=== PATIENT | female | born 1975 | race Caucasian/White ===

== ENCOUNTER 2020-09-12 17:14 | Emergency (ER) | payer OTHER, SELFPAY ==
[2020-09-12 17:22] VITALS: BP 125/80; PULSE 78; RESP 18; TEMP 36.2; O2SAT 96; BMI 36.8
--- NOTE | 2020-09-12 17:33 | ED_ITS ---
HPI - Back Pain/Injury General: Chief Complaint: Back Pain/Injury Stated Complaint: BACK PAIN Time Seen by Provider: 09/12/20 17:32 History of Present Illness: HPI Narrative: Patient is a 45-year-old female comes to the ED with lower back pain. Patient says yesterday she tried to move a jennifer-size bed by herself. After lifting she felt a little tweak in her lower back. Later that night she started developing some lower back pain and took ibuprofen. This morning when she woke up she had right and left lower back pain that does not radiate down into the legs. She has not taken any pain meds today. Pain rated 7 out of 10. Denies any bladder or bowel incontinence, numbness tingling to pelvic region and no weakness down lower extremities. Associated symptoms: Deny abdominal pain, chills, dysuria, fatigue, fecal incontinence, fever(s), hematuria, nausea, vomiting or weakness Treatments prior to arrival: NSAIDS Review of Systems Const: Denies: fever(s), chills or fatigue Eyes: Denies: change in vision or eye discomfort ENMT: Denies: throat pain, odynophagia, nasal discharge or nasal congestion Card: Denies: chest pain, palpitations, edema, swelling of feet/ankles, dyspnea on exertion or orthopnea Resp: Denies: dyspnea, productive cough or non-productive cough GI: Denies: abdominal pain, nausea, vomiting, diarrhea, constipation, fecal incontinence or hematochezia : Denies: flank pain, dysuria or hematuria Musc: Reports: back pain; Denies: neck pain or extremity swelling Skin/Breast: Denies: rash or new lesions Neuro: Denies: headache(s), numbness in extremities or weakness in extremities Physical Exam Const: COMMON NORMALS: no acute distress, patient oriented x3 and alert GENERAL APPEARANCE: cooperative and comfortable NUTRITIONAL APPEARANCE: overweight HENMT: COMMON NORMALS: normocephalic HEAD & SCALP: normocephalic MOUTH: Normal oral and palatal mucosa present THROAT: posterior oropharynx normal and uvula midline Eye: COMMON NORMALS: Equal, round and reactive pupils present PUPIL: Yes Equal, round and reactive pupils present Neck/C-Spine: COMMON NORMALS: supple GENERAL: Yes normal visual inspection Resp: COMMON NORMALS: normal respiratory effort, No retractions, No use of accessory muscles and clear to auscultation bilaterally AUSCULTATION: clear to auscultation bilaterally Cardio: COMMON NORMALS: regular rate, regular rhythm, S1 normal heart sound present, S2 normal heart sound present, No gallops present (Cardio), No clicks present (Cardio), No murmurs present (Cardio) and Peripheral pulses 2+ throughout RATE: regular rate RHYTHM: regular rhythm HEART SOUNDS: S1 normal heart sound present and S2 normal heart sound present PERIPHERAL PULSES: Peripheral pulses 2+ throughout GI: COMMON NORMALS: Normal to inspection, nondistended, normoactive bowel sounds present, Soft to palpation, non-tender and no masses PALPATION: Yes Soft to palpation : COMMON NORMALS: Yes no CVA tenderness BLADDER/KIDNEY EXAM: Yes no CVA tenderness Back/Pelvis: COMMON NORMALS: no CVA tenderness LUMBAR SPINE/LOWER BACK: Yes pain with ROM, No lumbar spinal tenderness and Yes paraspinal muscle tenderness Lumbar paraspinal muscle tenderness: right (Right side is more tender than left.) Right lumbar paraspinal muscle tenderness: L4 and L5 and left left lumbar paraspinal muscle tenderness: L4 and L5 Extremity: COMMON NORMALS: normal to inspection and no pedal edema Neuro: COMMON NORMALS: patient oriented x3 and moves all extremities SENSORIUM/ORIENTATION: Yes alert Skin: GENERAL SKIN EXAM: dry skin Course Vital Signs: Vital signs: Vital Signs Temperature 97.2 F L 09/12/20 17:22 Pulse Rate 78 09/12/20 17:22 Respiratory Rate 18 09/12/20 17:22 Blood Pressure 125/80 09/12/20 17:22 Pulse Oximetry 96 09/12/20 17:22 MDM - Back Pain/Injury MDM Narrative: Medical decision making narrative: Patient is a 45-year-old female who comes to the ED with lower back pain after lifting heavy object by herself yesterday. Denies any pain radiating down legs. Denies cauda equina symptoms. Patient has para lumbar spinal muscle tenderness bilaterally. [place] cross was given IM Norflex, Toradol and Solu-Medrol while here in the ED. She was diagnosed with strain of lumbar region and sent home with a prescription for Medrol Dosepak and Robaxin. She was told to follow-up with PCP in 7 to 10 days to rest, apply ice and/or heat to back. Stretch lower back daily take [id number] ibuprofen for pain. Return to ED precautions given. Patient understood agree with plan. Discharge Plan Discharge Patient Disposition: Home Clinical Impression: Strain of lumbar region Qualifiers: Encounter type: initial encounter Qualified Code(s): S39.012A - Strain of muscle, fascia and tendon of lower back, initial encounter Condition: Stable Prescriptions: New Medrol (Logan) 4 mg tablets,dose pack See Rx Instructions .ROUTE .COMPLEX Qty: 21 RF: 0 methocarbamol 750 mg tablet 750 mg PO Q8H Qty: 30 RF: 0 Discharge Orders: Discharge Order (Routine); Ordered 09/12/20 Ordered By: Rony Dailey Referrals: Stephanie Sahu FNP [Primary Care Provider] - Discharge Diet: Regular Discharge Activity: Increase activity as tolerated Patient Instructions: Low Back Strain (ED), Acute Low Back Pain (ED) Activity Restrictions/Additional Instructions: Follow-up with medical provider as directed in 7 to 10 days. Rest, ice and/or heat on lower back to help with symptoms. Massage sore muscles and stretch lower back daily. Take medications as prescribed. methocarbamol is a muscle relaxer and can cause some drowsiness. Use at night before bed and make sure to use with caution during the day. Take [id number] ibuprofen for pain. Return to the ER or your medical provider if condition worsens. Please read and understand discharge instructions. If any questions, please ask. Coding Level of Care Code ED [employer] [facility] Exam Comprehensive
[2020-09-12] MEDS: ketorolac 60 mg/2 mL INJ IM (18:19)
[2020-09-12] MEDS: orphenadrine 30 mg/mL Inj 2 mL 60 MG IM (18:20)
== END 2020-09-12 18:25 | disposition home or self-care (01) ==
PROVIDERS: Emergency Provider Physician Assistant; Family Provider Nurse Practitioner Family; PCP Nurse Practitioner Family
DX: S39.012A Strain of muscle, fascia and tendon of lower back, initial encounter (principal); X50.0XXA Overexertion from strenuous movement or load, initial encounter
CPT/HCPCS: 12345; 96372; 99281; 99283; J1885; J2360; J2930

== ENCOUNTER 2021-02-26 13:10 | Emergency (ER) | payer OTHER, SELFPAY ==
[2021-02-26 13:15] VITALS: BP 129/79; PULSE 63; RESP 18; TEMP 36.6; O2SAT 98; BMI 41.0
--- NOTE | 2021-02-26 14:07 | W.ED.ABDPA2 ---
HPI - Abdominal Pain General: Chief Complaint: Abdominal Pain Stated Complaint: RT SIDE PAIN, NAUSEA/VOMITING Time Seen by Provider: 02/26/21 14:03 History of Present Illness: HPI narrative: Patient is a 45-year-old female comes to the ED with abdominal pain, nausea and vomiting. Patient has a past surgical history of cholecystectomy, 2 C-sections. Patient also has a history of kidney stones. Patient says this morning she woke up to have a bowel movement and developed right lower quadrant abdominal pain. She denies any change in bowel movements or any blood in the stool. She says the pain is currently rated a 6 out of 10 but it has episodes of more severe waves of pain. She is also developed some nausea and vomiting since onset of abdominal pain this morning. Patient reports that abdominal pain also gets worse with any movement, such as twisting her torso or flexing abdomen to lean forward. She has had no appetite today as well. Denies any UTI symptoms, fever or chills. Associated Symptoms: Reports nausea and vomiting; Denies chills, constipation, diarrhea, dysuria, fever(s), hematochezia and hematuria Review of Systems Const: Reports: change in appetite (Decreased appetite today.); Denies: fever(s), chills or fatigue Eyes: Denies: change in vision or eye discomfort ENMT: Denies: throat pain, odynophagia, nasal discharge or nasal congestion Card: Denies: chest pain, palpitations, edema, swelling of feet/ankles, dyspnea on exertion or orthopnea Resp: Denies: dyspnea, productive cough or non-productive cough GI: Reports: abdominal pain, nausea and vomiting; Denies: diarrhea, constipation or hematochezia : Reports: flank pain; Denies: dysuria or hematuria Musc: Denies: neck pain, back pain or extremity swelling Skin/Breast: Denies: rash or new lesions Neuro: Denies: headache(s), numbness in extremities or weakness in extremities Physical Exam Const: COMMON NORMALS: no acute distress, patient oriented x3 and alert GENERAL APPEARANCE: cooperative and comfortable NUTRITIONAL APPEARANCE: obese HENMT: COMMON NORMALS: normocephalic HEAD & SCALP: normocephalic MOUTH: Normal oral and palatal mucosa present THROAT: posterior oropharynx normal and uvula midline Eye: COMMON NORMALS: Equal, round and reactive pupils present PUPIL: Yes Equal, round and reactive pupils present Neck/C-Spine: COMMON NORMALS: supple GENERAL: Yes normal visual inspection Resp: COMMON NORMALS: normal respiratory effort, No retractions, No use of accessory muscles and clear to auscultation bilaterally AUSCULTATION: clear to auscultation bilaterally Cardio: COMMON NORMALS: regular rate, regular rhythm, S1 normal heart sound present, S2 normal heart sound present, No gallops present (Cardio), No clicks present (Cardio), No murmurs present (Cardio) and Peripheral pulses 2+ throughout RATE: regular rate RHYTHM: regular rhythm HEART SOUNDS: S1 normal heart sound present and S2 normal heart sound present PERIPHERAL PULSES: Peripheral pulses 2+ throughout GI: COMMON NORMALS: Normal to inspection, nondistended, normoactive bowel sounds present, Soft to palpation and no masses INSPECTION: Yes central obesity PALPATION: Yes Soft to palpation and Yes Tenderness to palpation present (GI) (No localized tenderness. Tenderness in the right lower quadrant is general) Details: RLQ (No point tenderness. Generalized?possible muscular related.) : BLADDER/KIDNEY EXAM: Yes CVA tenderness on the right Back/Pelvis: GENERAL BACK: Yes CVA tenderness CVA tenderness: right Extremity: COMMON NORMALS: normal to inspection and no pedal edema Neuro: COMMON NORMALS: patient oriented x3 SENSORIUM/ORIENTATION: Yes alert GAIT: Yes Normal gait present Skin: GENERAL SKIN EXAM: dry skin Course Vital Signs: Vital signs: Vital Signs Temperature 97.9 F 02/26/21 13:15 Pulse Rate 62 02/26/21 15:41 Respiratory Rate 18 02/26/21 16:25 Blood Pressure 117/60 02/26/21 15:41 Pulse Oximetry 93 02/26/21 15:41 MDM - Abdominal Pain MDM Narrative: Medical decision making narrative: Patient is a 44-year-old female comes to the ED with some abdominal pain. Pain is acute in nature and does worsen with Humphrey core movements. Patient has tenderness to right lower quadrant but has not localized tenderness. White blood cell count 12 and the rest of labs were unremarkable. UA was unremarkable. CT the abdomen pelvis showed no acute findings. Patient diagnosed with muscular abdominal pain in right lower quadrant. She was discharged home with a prescription for methocarbamol. Return to ED precautions given. Follow-up with your PCP in 7 to 10 days for reevaluation. Patient understood and agreed with plan. Lab Data: Attestation: I reviewed the patient's lab results. Labs: Lab Results 02/26/21 02/26/21 02/26/21 Range/Units 14:20 14:30 14:30 WBC 12.0 H (4.0-10.0) 10^3/ uL RBC 5.21 (4.1-5.3) 10^6/u L Hgb 15.5 H (11.5-15.3) g/dL Hct 47.9 H (37.0-47.0) % MCV 91.9 (81-99) fL MCH 29.8 (28.0-34.0) pg MCHC 32.4 (30.0-36.0) g/dL RDW 13.1 (12.1-15.1) % Plt Count 403 H (130-400) 10^3/c mm MPV 9.5 (7.4-10.4) fL Neut % (Auto) 62.0 % Lymph % (Auto) 25.6 % [place] % (Auto) 8.0 % Eos % (Auto) 2.5 % Baso % (Auto) 1.2 % Neut # (Auto) 7.44 (1.8-7.7) 10^3/u L Lymph # (Auto) 3.1 (0.8-4.8) 10^3/u L [place] # (Auto) 1.0 H (0.2-0.9) 10^3/u L Eos # (Auto) 0.3 (0.0-0.8) 10^3/u L Baso # (Auto) 0.2 H (0.0-0.1) 10^3/u L Nucleated RBC % (a uto) 0 % Nucleated RBCs # 0.0 /100WBC Sodium 132 L (136-145) mmol/L Potassium 4.3 (3.5-5.1) mmol/L Chloride 96 L (98-107) mmol/L Carbon Dioxide 25 (22-29) mmol/L Anion Gap 15.3 (5-19) BUN 11 (6-20) mg/dL Creatinine 0.8 (0.5-0.9) mg/dL GFR Calculation 78.3 L (90-130) mL/min Glucose 90 (65-115) mg/dL Calculated Osmolal ity 273 L (285-295) mOsm/k g Calcium 9.1 (8.5-10.5) mg/dL Total Bilirubin 0.7 (0.15-1.2) mg/dL AST 12 (0-32) U/L ALT 22 (0-33) U/L Alkaline Phosphata se 82 (35-105) IU/L Total Protein 8.1 (6.6-8.7) g/dL Albumin 4.5 (3.5-5.2) g/dL Globulin 3.6 (1.3-4.6) g/dL Lipase 23 (13-60) U/L HCG, Qual (Negative) Urine Color Yellow (Yellow) Urine Appearance Clear (CLEAR) Urine pH 5 (5-7) Ur Specific Gravit y 1.015 (1.005-1.030) Urine Protein Neg (Negative) Urine Glucose (UA) Norm (Normal) Urine Ketones Negative (Negative) Urine Blood Neg (Negative) Urine Nitrate Negative (Negative) Urine Bilirubin Neg (Negative) Urine Urobilinogen Norm (Negative) mg/dL Ur Leukocyte Liz ase Negative (Negative) Urine RBC None (0-2) /hpf Urine WBC None (0-5) /hpf Ur Squamous Epith Cells 0-4 H (0-5) /hpf Amorphous Sediment Not Reportable Urine Bacteria Trace (NONE) /hpf 02/26/21 Range/Units 14:30 WBC (4.0-10.0) 10^3/ uL RBC (4.1-5.3) 10^6/u L Hgb (11.5-15.3) g/dL Hct (37.0-47.0) % MCV (81-99) fL MCH (28.0-34.0) pg MCHC (30.0-36.0) g/dL RDW (12.1-15.1) % Plt Count (130-400) 10^3/c mm MPV (7.4-10.4) fL Neut % (Auto) % Lymph % (Auto) % [place] % (Auto) % Eos % (Auto) % Baso % (Auto) % Neut # (Auto) (1.8-7.7) 10^3/u L Lymph # (Auto) (0.8-4.8) 10^3/u L [place] # (Auto) (0.2-0.9) 10^3/u L Eos # (Auto) (0.0-0.8) 10^3/u L Baso # (Auto) (0.0-0.1) 10^3/u L Nucleated RBC % (a uto) % Nucleated RBCs # /100WBC Sodium (136-145) mmol/L Potassium (3.5-5.1) mmol/L Chloride (98-107) mmol/L Carbon Dioxide (22-29) mmol/L Anion Gap (5-19) BUN (6-20) mg/dL Creatinine (0.5-0.9) mg/dL GFR Calculation (90-130) mL/min Glucose (65-115) mg/dL Calculated Osmolal ity (285-295) mOsm/k g Calcium (8.5-10.5) mg/dL Total Bilirubin (0.15-1.2) mg/dL AST (0-32) U/L ALT (0-33) U/L Alkaline Phosphata se (35-105) IU/L Total Protein (6.6-8.7) g/dL Albumin (3.5-5.2) g/dL Globulin (1.3-4.6) g/dL Lipase (13-60) U/L HCG, Qual Negative (Negative) Urine Color (Yellow) Urine Appearance (CLEAR) Urine pH (5-7) Ur Specific Gravit y (1.005-1.030) Urine Protein (Negative) Urine Glucose (UA) (Normal) Urine Ketones (Negative) Urine Blood (Negative) Urine Nitrate (Negative) Urine Bilirubin (Negative) Urine Urobilinogen (Negative) mg/dL Ur Leukocyte Liz ase (Negative) Urine RBC (0-2) /hpf Urine WBC (0-5) /hpf Ur Squamous Epith Cells (0-5) /hpf Amorphous Sediment Urine Bacteria (NONE) /hpf Imaging Data ^: CT Abd/Pel: Attestation: I personally reviewed and interpreted this imaging study as follows: Radiologist's impression: [address] [address] [address] Scan Report Signed Patient: Nathaly Howard Unit #: [id number] : 1975 Age/Sex: 45 / F ADM Date: 02/26/21 Loc: ER Room/Bed: Attending Dr: Ordering Provider/Ordering MD: Rony Dailey Date of Service: 02/26/21 Procedure(s): CT abdomen pelvis w con* [id number] Accession Number(s): [id number] Report Number: [id number] WS: [id number] CT scan of the abdomen and pelvis with IV contrast. Additional two-dimensional coronal and sagittal reconstruction was performed. 02/26/2021 Clinical Data: RLQ pain, n/v, Right CVA tenderness Comparison: None. DLP: 1981.[address] scans at [facility] use at least one of these dose optimization techniques: automated exposure control; mA and/or kV adjustment per patient size (includes targeted exams where dose is matched to clinical indication); or iterative reconstruction. Findings: The lower lungs show no nodules, masses or effusions. The spleen, adrenal glands and pancreas are normal. There is fatty change throughout the liver. The portal venous flow is normal. There are clips in the gallbladder fossa from a cholecystectomy. The kidneys show equal bilateral contrast excretion with no cyst or masses. No renal calculi or hydronephrosis is seen. The abdominal aorta is normal in size. No appendicitis or diverticulitis is seen. No abscess, adenopathy, ascites, mass, obstruction or free air is seen. The bladder is unremarkable. The uterus is absent. No inguinal hernia is seen. The bones of the lower thorax, lumbar spine, pelvis, and hips are not remarkable. CT/CT abdomen pelvis w con* [id number] Impression: 1. Fatty infiltration of the liver. 2. Cholecystectomy and hysterectomy. 3. Negative for acute intra-abdominal or pelvic abnormalities. Dictated By: Mitzy Landis MD Signed By: Mitzy Landsi MD Signed Date/Time: 02/26/21 1502 DD/ 1456 Discharge Plan Discharge Patient Disposition: Home Clinical Impression: Muscular abdominal pain in right lower quadrant Condition: Stable Prescriptions: New methocarbamol 750 mg tablet 750 mg PO Q8H Qty: 20 RF: 0 No Action Allergy Shot See Rx Instructions .ROUTE .COMPLEX RF: 0 Euthyrox 125 mcg tablet 125 mcg PO DAILY@1030 RF: 0 epinephrine 0.3 mg/0.3 mL auto-injector See Rx Instructions .ROUTE .COMPLEX RF: 0 escitalopram oxalate 20 mg tablet 40 mg PO DAILY@1030 RF: 0 Xyzal 5 mg Tablet 5 mg PO BID RF: 0 Eatable Cbd See Rx Instructions .ROUTE .COMPLEX RF: 0 Migraine Pain Reliever 1 - 2 tab PO Q4H PRN (Reason: Migraine Headache) RF: 0 Discharge Orders: Discharge ED (Routine); Ordered 02/26/21 Ordered By: Rony Dailey Referrals: Stephanie Sahu FNP [Primary Care Provider] - Discharge Diet: Regular Discharge Activity: Increase activity as tolerated Patient Instructions: Musculoskeletal Pain (ED), Core Strengthening Exercises (GEN) Activity Restrictions/Additional Instructions: Follow-up with medical provider as directed in 7 to 10 days for reevaluation. Take medications as prescribed. Methocarbamol is a muscle relaxer and can cause some drowsiness so take at night before bed. Take [id number] Tylenol or ibuprofen to help with pain. Apply cold pack on sore spot of abdomen and rest. I recommend some abdominal stretching and core strength exercises to help with symptoms and prevent reinjury. Return to the ER or your medical provider if condition worsens. Please read and understand discharge instructions. If any questions, please ask. Coding Level of Care Code ED [employer] Exam Comprehensive
--- NOTE | 2021-02-26 14:22 | CT_ITS ---
WS: [id number] CT scan of the abdomen and pelvis with IV contrast. Additional two-dimensional coronal and sagittal r econstruction was performed. 02/26/2021 Clinical Data: RLQ pain, n/v, Right CVA tenderness Comparison: None. DLP: 1981.[address] scans at [facility] use at least one of these dose optimization techniques: automat ed exposure control; mA and/or kV adjustment per patient size (includes targeted exams where dose is matched to clinical indication); or iterative reconstruction. Findings: The lower lungs show no nodules, masses or effusions. The spleen, adrenal glands and pancreas are normal. There is fatty change throughout the liver. The p ortal venous flow is normal. There are clips in the gallbladder fossa from a cholecystectomy. The kidneys show equal bilateral contrast excretion with no cyst or masses. No renal calculi or hydro nephrosis is seen. The abdominal aorta is normal in size. No appendicitis or diverticulitis is seen. No abscess, adenopathy, ascites, mass, obstruction or free air is seen. The bladder is unremarkable. The uterus is absent. No inguinal hernia is seen. The bones of the lower thorax, lumbar spine, pelvis, and hips are not remarkable. CT/CT abdomen pelvis w con* [id number] Impression: 1. Fatty infiltration of the liver. 2. Cholecystectomy and hysterectomy. 3. Negative for acute intra-abdominal or pelvic abnormalities.
[2021-02-26] MEDS: iohexol 300 mg/mL 100 mL Btl IV (14:34)
[2021-02-26 14:40] LABS: Basophils # 0.2 10^3/uL (0.0-0.1); Basophils % 1.2 %; Eosinophils # 0.3 10^3/uL (0.0-0.8); Eosinophils % 2.5 %; Hematocrit 47.9 % (37.0-47.0); Hemoglobin 15.5 g/dL (11.5-15.3); Lymphocytes # 3.1 10^3/uL (0.8-4.8); Lymphocytes % 25.6 %; Mean Corpuscular HGB Conc 32.4 g/dL (30.0-36.0); Mean Corpuscular Hemoglobin 29.8 pg (28.0-34.0); Mean Corpuscular Volume 91.9 fL (81-99); Mean Platelet Volume 9.5 fL (7.4-10.4); Neutrophils # 7.44 10^3/uL (1.8-7.7); Nucleated Red Blood Cells % 0 %; Platelet Count 403 10^3/cmm (130-400); Red Blood Count 5.21 10^6/uL (4.1-5.3); Red Cell Distribution Width 13.1 % (12.1-15.1)
[2021-02-26 14:51] LABS: HCG, Serum Qual Negative (Negative)
[2021-02-26 15:02] LABS: Alanine Aminotransferase 22 U/L (0-33); Albumin Level 4.5 g/dL (3.5-5.2); Alkaline Phosphatase 82 IU/L (35-105); Anion Gap 15.3 (5-19); Aspartate Amino Transferase 12 U/L (0-32); Blood Urea Nitrogen 11 mg/dL (6-20); Calcium 9.1 mg/dL (8.5-10.5); Carbon Dioxide 25 mmol/L (22-29); Chloride 96 mmol/L (98-107); Globulin 3.6 g/dL (1.3-4.6); Glomerular Filtration Rate 78.3 mL/min (90-130); Glucose 90 mg/dL (65-115); Lipase 23 U/L (13-60); Osmolality Calculated 273 mOsm/kg (285-295); Potassium 4.3 mmol/L (3.5-5.1); Sodium 132 mmol/L (136-145); Total Bilirubin 0.7 mg/dL (0.15-1.2); Total Protein 8.1 g/dL (6.6-8.7)
[2021-02-26 15:41] VITALS: BP 117/60; PULSE 62; RESP 16; O2SAT 93
[2021-02-26 16:10] LABS: Bilirubin Urine Neg (Negative); Blood Urine Neg (Negative); Glucose Urine UA Norm (Normal); Ketones Urine Negative (Negative); Leukocyte Esterase Urine Negative (Negative); Nitrate Urine Negative (Negative); Protein Urine Neg (Negative); Specific Gravity, Urine 1.015 (1.005-1.030); Urine Appearance Clear (CLEAR); Urine Color Yellow (Yellow); Urobilinogen Urine Norm (Negative); pH Urine 5 (5-7)
[2021-02-26 16:11] LABS: Bacteria Urine TRACE /hpf; Squamous Epithelial Cell Urine 0-4 /hpf (0-5)
[2021-02-26 16:12] LABS: Add Urine Culture? No
[2021-02-26 16:25] VITALS: RESP 18
[2021-02-26] MEDS: ondansetron 2 mg/ML SDV 2 mL 4 MG IVP (16:25)
[2021-02-26] MEDS: morphine 4 mg/mL SDV 1 mL IVP (16:25)
[2021-02-26] MEDS: sodium chloride 0.9% 1,000 ML 999 ML IV (17:07)
== END 2021-02-26 17:09 | disposition home or self-care (01) ==
PROVIDERS: Emergency Provider Physician Assistant; PCP Nurse Practitioner Family
DX: M79.18 Myalgia, other site (principal)
CPT/HCPCS: 74177; 80053; 81001; 83690; 84703; 85025; 96361; 96374; 96375; 99283; J2270; J2405; J7030; Q9967

== ENCOUNTER 2021-05-14 13:45 | Emergency (ER) | payer OTHER, SELFPAY ==
[2021-05-14 14:47] VITALS: BP 124/85; PULSE 72; RESP 18; TEMP 36.9; O2SAT 95; BMI 39.9
--- NOTE | 2021-05-14 15:16 | ED_ITS ---
HPI - Nausea/Vomiting/Diarrhea General: Chief complaint: Abdominal Pain Stated complaint: vomitting Time Seen by Provider: 05/14/21 14:55 History of Present Illness: HPI Narrative: The patient is a 45-year-old female who comes to the ER complaining of nausea, vomiting, and diarrhea for the past 4 days. She says her upper belly hurts when she retches and her muscles feel sore there. She is unable to keep even liquids down. She occasionally has problems like this but does not have them frequently. She does not remember eating any bad food or know any cause potentially of this problem. She has had her gallbladder removed. She has her appendix. She does not complain of right lower quadrant tenderness. MD elicited complaint: nausea, vomiting, diarrhea and abdominal pain Onset (ago): day(s) (4) Description of vomiting: watery Description of diarrhea: watery Associated nausea: Yes Location of pain: Epigastric Pain consistency: intermittent Severity: moderate Quality: cramping Exacerbating factors: eating Associated symtoms: Reports fatigue and nausea; Denies anxiety, change in vision, chest pain, dizziness, dysuria, headache(s) or palpitations Review of Systems General: Reports: 10 or more systems reviewed and unremarkable except in HPI and below Const: Reports: fatigue Eyes: Denies: change in vision, blurry vision or eye redness ENMT: Denies: throat pain, swelling of lips/tongue, ear or mastoid pain or nasal congestion Card: Denies: chest pain, palpitations, irregular heart rhythm, edema, dyspnea on exertion or orthopnea Resp: Denies: dyspnea, productive cough or non-productive cough GI: Reports: abdominal pain, nausea, vomiting and diarrhea : Denies: dysuria Musc: Denies: neck pain, back pain, extremity pain, joint pain, joint redness, limited range of motion or muscle weakness Skin/Breast: Denies: rash, pruritus, erythema, skin pain or skin tenderness Neuro: Denies: headache(s), numbness in extremities, weakness in extremities, sensory changes, difficulty walking, dizziness, confusion or Slurred speech present Psych: Denies: anxiety or depression Endo: Denies: polyuria All/Imm: Denies: urticaria, throat swelling or tongue swelling Physical Exam Const: COMMON NORMALS: no acute distress, average body habitus, patient oriented x3, no limitations, healthy appearing, alert and well nourished GENERAL APPEARANCE: cooperative, comfortable, well kempt and well developed ORIENTATION/CONSCIOUSNESS: Yes awake, Yes oriented to person, Yes oriented to place and Yes oriented to time HENMT: COMMON NORMALS: normocephalic, external ears normal and Normal external nose present HEAD & SCALP: normal to inspection and normocephalic NOSE: Normal external nose present EXTERNAL EAR: Yes external ears normal MOUTH: Normal oral and palatal mucosa present THROAT: posterior oropharynx normal Eye: COMMON NORMALS: Equal, round and reactive pupils present and EOMs intact bilaterally GENERAL EYE: appearance normal, both eyes and all related structures PUPIL: Yes Equal, round and reactive pupils present Neck/C-Spine: COMMON NORMALS: full ROM, no lymphadenopathy, no meningeal signs and no JVD GENERAL: Yes normal visual inspection Lymph: LYMPHATIC: no lymphadenopathy noted Chest: COMMONS NORMALS: normal inspection of the chest and normal palpation of entire chest wall Resp: COMMON NORMALS: normal respiratory effort, No retractions, No use of accessory muscles, clear to auscultation bilaterally and percussion normal EFFORT & INSPECTION: Yes able to speak in complete sentences AUSCULTATION: clear to auscultation bilaterally PERCUSSION: percussion normal Cardio: COMMON NORMALS: no JVD, regular rate, regular rhythm, S1 normal heart sound present, S2 normal heart sound present and Peripheral pulses 2+ throughout RATE: regular rate RHYTHM: regular rhythm HEART SOUNDS: S1 normal heart sound present and S2 normal heart sound present PERIPHERAL PULSES: Peripheral pulses 2+ throughout GI: COMMON NORMALS: Normal to inspection, nondistended, normoactive bowel sounds present, Soft to palpation, non-tender and no masses INSPECTION: Yes normal to inspection PALPATION: Yes Soft to palpation : COMMON NORMALS: Yes no CVA tenderness BLADDER/KIDNEY EXAM: Yes no CVA tenderness Back/Pelvis: COMMON NORMALS: no CVA tenderness, thoracic and lumbar spine normal to inspection, no thoracic nor lumbar tenderness and thoraco-lumbar ROM normal Extremity: COMMON NORMALS: normal to inspection, full ROM, capillary refill normal, no joint enlargement and no pedal edema GENERAL: Yes normal exam except as noted Neuro: COMMON NORMALS: patient oriented x3, CN's II-XII intact bilaterally, moves all extremities, no focal motor deficits, no sensory deficits noted and gait normal SENSORIUM/ORIENTATION: Yes alert, Yes oriented to person, Yes oriented to place and Yes oriented to time MENINGEAL SIGNS: Yes no meningeal signs Psych: COMMON NORMALS: mental status grossly normal, Normal thought process present, cooperative, normal affect and speech normal APPEARANCE: Yes well kempt ATTITUDE: Yes calm SPEECH: Yes normal speech THOUGHT PROCESS: Normal thought process present Skin: COMMON NORMALS: no rashes or lesions noted GENERAL SKIN EXAM: no rashes or lesions noted Course Vital Signs: Vital signs: Vital Signs Temperature 98.5 F 05/14/21 14:47 Pulse Rate 61 05/14/21 18:00 Respiratory Rate 18 05/14/21 18:00 Blood Pressure 127/77 05/14/21 18:00 Pulse Oximetry 96 05/14/21 18:00 MDM - Nausea/Vomiting/Diarrhea MDM Narrative: Medical decision making narrative: CT abdomen pelvis has no acute injuries but does show severe steatosis. Unchanged from the previous image. I placed a case management referral to help her get in with GI to discuss this further. Recommended taking Zofran for her nausea and vomiting and drinking lots of fluids. She has not vomited since she has been here after the Zofran and IV fluids. Stable for discharge with a prescription of that. ER with worsening symptoms at any time Lab Data: Labs: Lab Results 05/14/21 05/14/21 05/14/21 Range/Units 16:20 16:20 18:09 WBC 7.0 (4.0-10.0) 10^3/ uL RBC 5.18 (4.1-5.3) 10^6/u L Hgb 15.7 H (11.5-15.3) g/dL Hct 48.5 H (37.0-47.0) % MCV 93.6 (81-99) fL MCH 30.3 (28.0-34.0) pg MCHC 32.4 (30.0-36.0) g/dL RDW 13.0 (12.1-15.1) % Plt Count 353 (130-400) 10^3/c mm MPV 9.5 (7.4-10.4) fL Neut % (Auto) 47.5 % Lymph % (Auto) 39.2 % [place] % (Auto) 8.8 % Eos % (Auto) 3.1 % Baso % (Auto) 1.1 % Neut # (Auto) 3.32 (1.8-7.7) 10^3/u L Lymph # (Auto) 2.8 (0.8-4.8) 10^3/u L [place] # (Auto) 0.6 (0.2-0.9) 10^3/u L Eos # (Auto) 0.2 (0.0-0.8) 10^3/u L Baso # (Auto) 0.1 (0.0-0.1) 10^3/u L Nucleated RBC % (a uto) 0 % Nucleated RBCs # 0.0 /100WBC Sodium 139 (136-145) mmol/L Potassium 4.1 (3.5-5.1) mmol/L Chloride 102 (98-107) mmol/L Carbon Dioxide 26 (22-29) mmol/L Anion Gap 15.1 (5-19) BUN 9 (6-20) mg/dL Creatinine 0.8 (0.5-0.9) mg/dL GFR Calculation 78.3 L (90-130) mL/min Glucose 92 (65-115) mg/dL Calculated Osmolal ity 286 (285-295) mOsm/k g Calcium 9.0 (8.5-10.5) mg/dL Total Bilirubin 0.7 (0.15-1.2) mg/dL AST 17 (0-32) U/L ALT 26 (0-33) U/L Alkaline Phosphata se 65 (35-105) IU/L Total Protein 7.3 (6.6-8.7) g/dL Albumin 4.2 (3.5-5.2) g/dL Globulin 3.1 (1.3-4.6) g/dL Lipase 17 (13-60) U/L HCG, Qual Negative (Negative) Urine Color (Yellow) Urine Appearance (CLEAR) Urine pH (5-7) Ur Specific Gravit y (1.005-1.030) Urine Protein (Negative) Urine Glucose (UA) (Normal) Urine Ketones (Negative) Urine Blood (Negative) Urine Nitrate (Negative) Urine Bilirubin (Negative) Urine Urobilinogen (Negative) mg/dL Ur Leukocyte Liz ase (Negative) 05/14/21 Range/Units 18:09 WBC (4.0-10.0) 10^3/ uL RBC (4.1-5.3) 10^6/u L Hgb (11.5-15.3) g/dL Hct (37.0-47.0) % MCV (81-99) fL MCH (28.0-34.0) pg MCHC (30.0-36.0) g/dL RDW (12.1-15.1) % Plt Count (130-400) 10^3/c mm MPV (7.4-10.4) fL Neut % (Auto) % Lymph % (Auto) % [place] % (Auto) % Eos % (Auto) % Baso % (Auto) % Neut # (Auto) (1.8-7.7) 10^3/u L Lymph # (Auto) (0.8-4.8) 10^3/u L [place] # (Auto) (0.2-0.9) 10^3/u L Eos # (Auto) (0.0-0.8) 10^3/u L Baso # (Auto) (0.0-0.1) 10^3/u L Nucleated RBC % (a uto) % Nucleated RBCs # /100WBC Sodium (136-145) mmol/L Potassium (3.5-5.1) mmol/L Chloride (98-107) mmol/L Carbon Dioxide (22-29) mmol/L Anion Gap (5-19) BUN (6-20) mg/dL Creatinine (0.5-0.9) mg/dL GFR Calculation (90-130) mL/min Glucose (65-115) mg/dL Calculated Osmolal ity (285-295) mOsm/k g Calcium (8.5-10.5) mg/dL Total Bilirubin (0.15-1.2) mg/dL AST (0-32) U/L ALT (0-33) U/L Alkaline Phosphata se (35-105) IU/L Total Protein (6.6-8.7) g/dL Albumin (3.5-5.2) g/dL Globulin (1.3-4.6) g/dL Lipase (13-60) U/L HCG, Qual (Negative) Urine Color Dark yellow (Yellow) Urine Appearance Clear (CLEAR) Urine pH 5 (5-7) Ur Specific Gravit y 1.025 (1.005-1.030) Urine Protein Neg (Negative) Urine Glucose (UA) Norm (Normal) Urine Ketones Negative (Negative) Urine Blood Neg (Negative) Urine Nitrate Negative (Negative) Urine Bilirubin 1+ H (Negative) Urine Urobilinogen Norm (Negative) mg/dL Ur Leukocyte Liz ase Negative (Negative) Discharge Plan Discharge Patient Disposition: Home Clinical Impression: Gastroenteritis Condition: Stable Prescriptions: New ondansetron 4 mg tablet,disintegrating 4 mg PO Q8H 4 Days Qty: 12 RF: 0 No Action levothyroxine [Euthyrox] 125 mcg tablet 125 mcg PO QAM RF: 0 epinephrine 0.3 mg/0.3 mL auto-injector See Rx Instructions .ROUTE .COMPLEX RF: 0 escitalopram oxalate 20 mg tablet 40 mg PO QAM RF: 0 levocetirizine [Xyzal] 5 mg Tablet 5 mg PO BID RF: 0 Migraine Pain Reliever 250-250-65 mg Tablet 1 - 2 tab PO PRN RF: 0 Weekly Allergy Shot See Rx Instructions .ROUTE .COMPLEX RF: 0 Tylenol Extra Strength 500 mg Tablet 1,000 mg PO PRN RF: 0 Discharge Orders: Discharge ED (Routine); Ordered 05/14/21 Ordered By: Luis Montalvo Referrals: Stephanie Sahu FNP [Primary Care Provider] - Discharge Diet: Advance as tolerated Discharge Activity: Resume usual activity Patient Instructions: Gastroenteritis (ED), Opioid Safety Activity Restrictions/Additional Instructions: You are suffering from gastroenteritis. Please take the Zofran to help with your nausea and vomiting and drink lots of fluids. Return to the ER at anytime with worsening symptoms. Follow-up with your primary care physician later this week or early next week to monitor improvement of your symptoms. I have placed a case management referral to help you get in with a GI doctor as well as your CAT scan shows that you have severe steatosis in your liver. Which is fatty liver disease. Coding Level of Care Code ED Cell Manager for Chad Fwd Exam Comprehensive
[2021-05-14 16:22] VITALS: BP 150/89; PULSE 63; RESP 18; O2SAT 92
[2021-05-14] MEDS: sodium chloride 0.9% 1,000 ML 999 ML IV (16:26)
[2021-05-14] MEDS: ondansetron 2 mg/ML SDV 2 mL 4 MG IVP (16:26)
[2021-05-14 16:28] LABS: Basophils # 0.1 10^3/uL (0.0-0.1); Basophils % 1.1 %; Eosinophils # 0.2 10^3/uL (0.0-0.8); Eosinophils % 3.1 %; Hematocrit 48.5 % (37.0-47.0); Hemoglobin 15.7 g/dL (11.5-15.3); Lymphocytes # 2.8 10^3/uL (0.8-4.8); Lymphocytes % 39.2 %; Mean Corpuscular HGB Conc 32.4 g/dL (30.0-36.0); Mean Corpuscular Hemoglobin 30.3 pg (28.0-34.0); Mean Corpuscular Volume 93.6 fL (81-99); Mean Platelet Volume 9.5 fL (7.4-10.4); Monocytes # 0.6 10^3/uL (0.2-0.9); Monocytes % 8.8 %; Neutrophils # 3.32 10^3/uL (1.8-7.7); Neutrophils % 47.5 %; Nucleated Red Blood Cells % 0 %; Platelet Count 353 10^3/cmm (130-400); Red Blood Count 5.18 10^6/uL (4.1-5.3)
[2021-05-14 17:14] LABS: Alanine Aminotransferase 26 U/L (0-33); Albumin Level 4.2 g/dL (3.5-5.2); Alkaline Phosphatase 65 IU/L (35-105); Anion Gap 15.1 (5-19); Aspartate Amino Transferase 17 U/L (0-32); Blood Urea Nitrogen 9 mg/dL (6-20); Carbon Dioxide 26 mmol/L (22-29); Chloride 102 mmol/L (98-107); Globulin 3.1 g/dL (1.3-4.6); Glomerular Filtration Rate 78.3 mL/min (90-130); Glucose 92 mg/dL (65-115); Lipase 17 U/L (13-60); Osmolality Calculated 286 mOsm/kg (285-295); Potassium 4.1 mmol/L (3.5-5.1); Sodium 139 mmol/L (136-145); Total Bilirubin 0.7 mg/dL (0.15-1.2); Total Protein 7.3 g/dL (6.6-8.7)
[2021-05-14 17:52] VITALS: BP 151/91; PULSE 63; RESP 18; O2SAT 96
[2021-05-14 18:00] VITALS: BP 127/77; PULSE 61; RESP 18; O2SAT 96
--- NOTE | 2021-05-14 18:19 | CTR_ITS ---
PROCEDURE INFORMATION: Exam: CT Abdomen And Pelvis With Contrast Exam date and time: 05/14/2021 6:19 PM Age: 45 years old Clinical indication: Abdominal pain; Localized; Other: Central; Prior surgery; Surgery type: Gb; Additional info: Upper abd tenderness. N/v/d x 4 days TECHNIQUE: Imaging protocol: Computed tomography of the abdomen and pelvis with contrast. Radiation optimization: All CT scans at this facility use at least one of these dose optimization techniques: automated exposure control; mA and/or kV adjustment per patient size (includes targeted exams where dose is matched to clinical indication); or iterative reconstruction. Contrast material: OMNI 300; Contrast volume: 95 ml; Contrast route: INTRAVENOUS (IV); COMPARISON: CT abdomen pelvis w con* [id number] 02/26/2021 2:48 PM RADIATION DOSE METRICS: Total DLP (mGy-cm): 1961.57 FINDINGS: Lungs: Calcified granuloma at the lingula. Minor linear atelectasis or scarring at the posterior left lung base. Liver: Severe diffuse hepatic steatosis. Atrophy of the left hepatic lobe with diminutive left portal vein which appears patent and corresponding hypertrophy of the right hepatic lobe. The rest of the portal and hepatic veins are also patent. No focal lesion. Gallbladder and bile ducts: Cholecystectomy clips noted. Pancreas: Normal. No ductal dilation. Spleen: Normal. No splenomegaly. Adrenal glands: Normal. No mass. Kidneys and ureters: Normal. No hydronephrosis. Stomach and bowel: Unremarkable. No obstruction. No mucosal thickening. Appendix: No evidence of appendicitis. Intraperitoneal space: Unremarkable. No free air. No significant fluid collection. Vasculature: See Liver finding. Lymph nodes: Unremarkable. No enlarged lymph nodes. Urinary bladder: Unremarkable as visualized. Reproductive: Hysterectomy changes noted. Bones/joints: No acute fracture. Soft tissues: Unremarkable. CT/CT abdomen pelvis w con* [id number] IMPRESSION: 1. No acute findings within the abdomen/pelvis. 2. Severe hepatic steatosis with atrophy of the left hepatic lobe, similar to previous exam. Radiation Dose CTDIVOL = (mGy): DLP = 1961.57 (mGy-cm)
[2021-05-14 18:23] LABS: Add Urine Microscopic? NO; Charge for UA Resulting for Rev
[2021-05-14 18:27] LABS: Bilirubin Urine 1+ (Negative); Blood Urine Neg (Negative); Glucose Urine UA Norm (Normal); Ketones Urine Negative (Negative); Leukocyte Esterase Urine Negative (Negative); Nitrate Urine Negative (Negative); Protein Urine Neg (Negative); Specific Gravity, Urine 1.025 (1.005-1.030); Urine Appearance Clear (CLEAR); Urine Color Dark Yellow (Yellow); Urobilinogen Urine Norm (Negative); pH Urine 5 (5-7)
[2021-05-14 18:28] LABS: HCG Qualitative Urine. Negative (Negative)
[2021-05-14] MEDS: iohexol 300 mg/mL 100 mL Btl IV (19:10)
[2021-05-14] MEDS: ketorolac 30 mg/mL INJ 15 MG IVP (20:17)
[2021-05-14 20:27] VITALS: BP 138/71; PULSE 57; RESP 15; TEMP 36.9; O2SAT 97
--- NOTE | 2021-05-15 11:29 | DCPLANNER ---
Addendum entered by Hayley Cazares 05/20/21 14:15: manager company emailed general surgery asking if a follow up appointment had been scheduled for patient. manager company was contacted and told that clinic tried to call patient but that cell had been disconnected and no answer at home. Original Note: manager company had message to schedule a follow up appointment for patient with general surgery for severe hepatic steatosis. manager company emailed patients information to Renee at [facility] General Surgery. Patients information will be printed and reviewed. Clinic will call patient with appointment information.
== END 2021-05-14 20:29 | disposition home or self-care (01) ==
PROVIDERS: Emergency Medicine; Emergency Provider Family Medicine; PCP Nurse Practitioner Family
DX: K52.9 Noninfective gastroenteritis and colitis, unspecified (principal)
CPT/HCPCS: 74177; 80053; 81003; 81025; 83690; 85025; 96361; 96374; 96375; 99284; J1885; J2405; J7030; Q9967

== ENCOUNTER → 2021-08-28 07:54 | Outpatient (BNVA) | payer OTHER, SELFPAY | PROVIDERS: PCP Nurse Practitioner Family; Visit Provider Surgery | DX: Z01.812 Encounter for preprocedural laboratory examination (principal); Z20.822 Contact with and (suspected) exposure to COVID-19; R10.9 Unspecified abdominal pain | CPT/HCPCS: 87635 ==

== ENCOUNTER 2021-09-03 05:54 | Day surgery (SDC) | payer OTHER, SELFPAY ==
[2021-08-28 11:07] VITALS: BMI 41.0
--- NOTE | 2021-09-03 06:32 | W.PM.OPSUD ---
Surgery/Procedure H&P Update DATE OF PROCEDURE: September 03, 2021 DATE H&P PERFORMED: 08/13/21 H&P UPDATE INFORMATION: I have reviewed H&P completed within last 30 days, I have examined patient prior to procedure and No changes to prior documentation PREOP DIAGNOSIS: Morbid obesity/GERD PRIMARY INDICATION FOR PROCEDURE: Prebariatric surgery screening and GERD PLANNED PROCEDURE: Operation Date: 09/03/21 07:30 Proposed Procedures p EGD 04968 R10.9(Not Applicable) - Gonsalo Ruiz MD
[2021-09-03 06:35] VITALS: BP 126/82; PULSE 73; RESP 18; TEMP 36.4; O2SAT 98
--- NOTE | 2021-09-03 06:55 | ANES.PREANE2 ---
Pre-Anesthetic Assessment Pre-Anesthetic Assessment: Height/Weight: Height 1.7 m Weight 118.841 kg Temp Pulse Resp BP Pulse Ox 97.6 F 73 18 126/82 98 09/03/21 06:35 09/03/21 06:35 09/03/21 06:35 09/03/21 06:35 09/03/21 06:35 Preop Diagnosis: Morbid obesity Proposed Procedure: Operation Date: 09/03/21 07:30 Proposed Procedures p EGD 80952 R10.9(Not Applicable) - Gonsalo Ruiz MD Familial anesthetic complications: none Was Beta Jack taken within 24 hours: N/A Was Clonidine taken within 24 hours: N/A Last intake: Intake Last Liquid Date 09/02/21 Last Liquid Time 21:30 Last Solid Date 09/02/21 Last Solid Time 21:00 Last Intake: 21:30 Social: Social History: No alcohol and No tobacco Exam: Pre-Anes Outpt Exam: alert, oriented x 3, clear to auscultation bilaterally and regular rate & rhythm Airway: Submandibular: WNL Cervical ROM: WNL MP: 2 Dentition: Full Pulmonary: Pulmonary: Asthma (with exercise) CV/HEM: CV/HEM: None reported : : None reported Hepatic: Hepatic: None reported GI: GI: GERD Metabolic: Metabolic: Morbid obesity and Thyroid (thyroidectomy) Musc/skel: Musc/skel: Lower Back Pain Neuropsych: Neuropsych: Anxiety, Bipolar, Depression and Syncope (3-4 months says OK) Anesthetic Plan: ASA status: 3 Anesthesia: MAC PFSH Anesthesia PFSH: Medical History BMI 40.0-44.9, adult Depression affecting Hypothyroidism Morbid obesity Sleep apnea Surgical History History of cholecystectomy History of thyroidectomy, total Family History Denies family history of Anesthesia complication Bleeding disorder Data Anesthesia Cardiac Studies: No Data to Display
[2021-09-03] MEDS: sodium chloride 0.9% 1,000 ML 30 ML IV (06:56)
[2021-09-03] MEDS: midazolam 1 mg/mL INJ 2 mL 2 MG IVP (07:10)
[2021-09-03 07:47] VITALS: BP 121/78; PULSE 69; RESP 16; TEMP 36.1; O2SAT 98
[2021-09-03 07:57] VITALS: BP 141/69; PULSE 72; RESP 18; O2SAT 95
--- NOTE | 2021-09-03 08:43 | ANE.PACU2 ---
Inpatient post-anesthesia follow up: Airway intact: Yes Vital signs: Temperature 97.0 F Pulse Rate 72 Respiratory Rate 18 Blood Pressure 141/69 Pulse Oximetry 95 Oxygen Delivery Me thod Room Air Oxygen Flow Rate 4 Fraction of Inspir ed Oxygen Hydration adequate: Yes Nausea and vomiting: No Pain level: 1 Mental status: Baseline
[2021-09-04 13:21] LABS: H. Pylori / CLO Test Negative
== END 2021-09-03 08:13 | disposition home or self-care (01) ==
PROVIDERS: PCP Family Medicine; Visit Provider Surgery
PROC: 0DJ08ZZ Inspection of Upper Intestinal Tract, Via Natural or Artificial Opening Endoscopic (ICD-10-PCS; CPT 43235; principal; 2021-09-03 07:30)
DX: R10.9 Unspecified abdominal pain (principal); K21.00 Gastro-esophageal reflux disease with esophagitis, without bleeding; K29.70 Gastritis, unspecified, without bleeding; K29.80 Duodenitis without bleeding; J45.909 Unspecified asthma, uncomplicated; K21.9 Gastro-esophageal reflux disease without esophagitis; E66.01 Morbid (severe) obesity due to excess calories; Z68.41 Body mass index [BMI] 40.0-44.9, adult; F31.9 Bipolar disorder, unspecified; E03.9 Hypothyroidism, unspecified; G47.30 Sleep apnea, unspecified; Z79.82 Long term (current) use of aspirin; F41.9 Anxiety disorder, unspecified
CPT/HCPCS: 43239; 87077; 96360; 96374; J2250; J2704; J7030

== ENCOUNTER 2021-11-25 14:34 | Outpatient (CLI) | payer OTHER, SELFPAY ==
--- NOTE | 2021-11-25 14:41 | MM_ITS ---
WS: [id number] SCREENING DIGITAL MAMMOGRAM WITH CAD HISTORY: SCREENING COMPARISON: None available. Bilateral CC and MLO views submitted. Computer aided detection analyzed. Breast composition: There are scattered areas of fibroglandular density. There is an area of very mil d distortion in the LEFT breast near 9:00, anterior. The remaining breasts are negative. MM/[place] [id number] IMPRESSION: BI-RADS: 0-Incomplete: Need additional imaging evaluation FOLLOW UP: Need Additional Imaging LEFT breast: Spot compression views (CC and MLO). True ML. Ultrasound to follow if abnormality persists.
== END 2021-11-25 14:35 | disposition home or self-care (01) ==
LOC: RADSHAW 14:40
PROVIDERS: PCP Family Medicine; Visit Provider Family Medicine
DX: Z12.31 Encounter for screening mammogram for malignant neoplasm of breast (principal)
CPT/HCPCS: 77067

== ENCOUNTER 2021-11-28 13:37 | Outpatient (CLI) | payer OTHER, SELFPAY ==
--- NOTE | 2021-11-28 13:45 | MM_ITS ---
WS: [id number] ADDITIONAL VIEWS LEFT MAMMOGRAM HISTORY: ABNORMAL MAMMOGRAM COMPARISON: 11/25/2021 Spot compression views LEFT breast in CC, MLO projections and true ML submitted. The asymmetry noted in the medial LEFT breast resolves with additional spot compression views. No per sistent abnormality identified. MM/[place] [id number] IMPRESSION: BI-RADS: 2-Benign FOLLOW UP: 1 Year Follow-up Return to annual screening mammography.
== END 2021-11-28 13:38 | disposition home or self-care (01) ==
LOC: RADSHAW 13:40
PROVIDERS: PCP Family Medicine; Visit Provider Family Medicine
DX: R92.8 Other abnormal and inconclusive findings on diagnostic imaging of breast (principal)
CPT/HCPCS: 77065

== ENCOUNTER → 2022-06-05 10:17 | Outpatient (BNVA) | payer OTHER, SELFPAY | PROVIDERS: PCP Family Medicine; Visit Provider Family Medicine Adult Medicine | DX: M54.9 Dorsalgia, unspecified (principal) | CPT/HCPCS: 81000 ==

== ENCOUNTER → 2022-08-21 10:30 | Outpatient (BNVA) | payer OTHER, SELFPAY | PROVIDERS: PCP Family Medicine; Visit Provider Nurse Practitioner | DX: R05.9 Cough, unspecified (principal); Z20.822 Contact with and (suspected) exposure to COVID-19; Z68.41 Body mass index [BMI] 40.0-44.9, adult; R11.0 Nausea | CPT/HCPCS: 87400; 87426 ==

== ENCOUNTER → 2022-09-29 09:39 | Outpatient (BNVA) | payer OTHER, SELFPAY | PROVIDERS: PCP Family Medicine; Visit Provider Nurse Practitioner | DX: E03.9 Hypothyroidism, unspecified (principal) | CPT/HCPCS: 80053; 80061; 81000; 84439; 84443; 84481; 85025 ==

== ENCOUNTER → 2022-10-15 08:26 | Outpatient (BNVA) | payer OTHER, SELFPAY | PROVIDERS: PCP Family Medicine; Visit Provider Nurse Practitioner | DX: Z11.59 Encounter for screening for other viral diseases (principal); K76.0 Fatty (change of) liver, not elsewhere classified | CPT/HCPCS: 86705; 86706; 86709; 86803; 87340 ==

== ENCOUNTER 2022-11-04 12:12 | Emergency (ER) | payer OTHER, SELFPAY ==
[2022-11-04] VITALS (10 sets, daily range): BP systolic 101–135; BP diastolic 65–87; PULSE 64–70; RESP 18; TEMP 36.8; O2SAT 90–96; BMI 39.4
--- NOTE | 2022-11-04 13:03 | ECG_ITS ---
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 Measurements Intervals [place] Rate: 67 P: 25 AK: 170 QRS: 32 QRSD: 85 T: 48 QT: 425 QTc: 450 Interpretive Statements SINUS RHYTHM ST DEVIATION AND MODERATE T-WAVE ABNORMALITY, CONSIDER ANTERIOR ISCHEMIA [-0.1+ mV T-WAVE IN V3/V4] No previous ECG available for comparison Electronically Signed On 11-04-2022 16:50:26 [employer] ENGINE[employer] by Mariel Sol M.D. [id number]
--- NOTE | 2022-11-04 13:20 | ED_ITS ---
HPI - Abdominal Pain General: Chief Complaint: Abdominal Pain Stated Complaint: Passed out and not feeling good. Time Seen by Provider: 11/04/22 12:47 Source: patient Mode of arrival: ambulatory History of Present Illness: 47-year-old female presents emergency room after reporting syncopal episode while going to the bathroom. She had some abdominal discomfort and cramping if he went to the restroom and thinking she had to defe rory and then states she had a syncopal episode she was able to open the door and summon help. She had some right lower quadrant abdominal discomfort during this time. She has a history of irritable bowel and steatohepatitis but no other major medical issues. She reported feeling near syncopal in the triage area but resolved without having any episodes. Has not recently been ill denies any fever sweats chills no dysuria urgency or frequency no abdominal pain at this time no chest pain. Patient is diabetic. MD elicited complaint: abdominal pain Onset (ago): minute(s) Pain Consistency: now resolved Location: RUQ and RLQ Severity: mild Quality: cramping Radiation: none Exacerbating factors: nothing Relieving factors: nothing Associated Symptoms: Reports syncope; Denies anorexia, belching, bloating, change in bowel habits, change in stool character, chills, coffee ground emesis, constipation, GI cramping, diarrhea, dyspepsia, dysuria, excessive flatus, fever(s), heartburn, hematochezia, hematuria, hematemesis, fecal incontinence, loose stools, melena, nausea, poor appetite and vomiting Review of Systems Const: Denies: fever(s), chills, fatigue or malaise ENMT: Denies: throat pain, ear or mastoid pain, nasal discharge or nasal congestion Card: Reports: syncope; Denies: chest pain, palpitations, irregular heart rhythm or edema Resp: Denies: dyspnea, productive cough or non-productive cough GI: Reports: abdominal pain; Denies: nausea, vomiting, hematemesis, coffee ground emesis, heartburn, diarrhea, constipation, bloating, GI cramping, belching, excessive flatus, fecal incontinence, change in bowel habits, change in stool character, hematochezia or melena : Denies: dysuria, urinary frequency, urinary urgency or hematuria Skin/Breast: Denies: rash or pruritus Neuro: Denies: headache(s) PFSH ED PFSH: Medical History Colitis Esophagitis determined by endoscopy Hypertriglyceridemia Hypothyroidism IBS (irritable bowel syndrome) Morbid obesity No pertinent past medical history neghx: htn,dm,dvt/pe PCP: [facility] Obesity, Class II, BMI 35-39.9 Sleep apnea Surgical History H/O rhinoplasty (~2002) History of 1)-2000 2)-2005 History of cholecystectomy History of hysterectomy (~06/29/18) Diagnostic laparoscopy with total abdominal hysterectomy performed by Dr. Mendoza for pelvic pain and abnormal uterine bleeding. Multiple omental and bladder adhesions noted. 1. Cervix: Benign cervical mucosa. 2. Cul-de-sac peritoneum: No significant histopathologic alteration. 3. Lower uterine segment/endocervical canal: Mucosal attenuation. 4. Endometrium: Proliferative endometrium. 5. Myometrium: Small leiomyoma. Superficial adenomyosis. 6. Right adnexa: Normal fallopian tube. 7. Left adnexa: Normal fallopian tube Hx of dilation and curettage (~04/07/17) 04/07/2017, Performed per Dr. Mendoza due to incomplete Hx of thyroidectomy (~05/16/18) Performed in [place] due to cancer Family History Father Diabetes Heart disease Hypercholesteremia Hypertension Grandfather Heart disease Maternal and Paternal Hypercholesteremia Maternal and Paternal Hypertension Maternal and Paternal Mother Thyroid disease Heart disease Hypercholesteremia Hypertension Grandmother Hypercholesteremia Maternal and Paternal Hypertension Paternal Brother Hypertension Denies family history of Colon cancer Ovarian cancer Breast cancer Uterine cancer Stroke Social History Smoking and tobacco status: former smoker Second hand smoke exposure: No Smoking risk assessment/counseling performed?: No Alcohol intake: unknown Desire information about alcohol rehabilitation?: No Counseling given: No Desire information about substance/drug rehabilitation?: No Counseling given: No Adopted: No Caregiver/support person: No Lives independently: Yes Household members: spouse and children Housing: House Marital status: Number of children: 2 service: No Current occupational status: employed Pets and animals: Yes Pets & animals: dog(s) History of recent travel: No Current gender identity: Female Physical Exam Const: GENERAL APPEARANCE: cooperative and comfortable ORIENTATION/CONSCIOUSNESS: Yes awake, Yes oriented to person, Yes oriented to place and Yes oriented to time HENMT: COMMON NORMALS: normocephalic, atraumatic, hearing grossly normal bila terally, external ears normal, EAC's normal, TM's normal bilaterally and Normal nasal mucous membranes and turbinates present HEAD & SCALP: normocephalic and atraumatic NOSE: Normal nasal mucous membranes and turbinates present EXT ERNAL EAR: Yes external ears normal EXTERNAL AUDITORY CANAL: EAC's normal TYMPANIC MEMBRANE: TM's normal bilaterally Resp: COMMON NORMALS: normal respiratory effort, No retractions, No use of accessory muscles and clear to auscultation bilaterally AUSCULTATION: clear to auscultation bilaterally Cardio: COMMON NORMALS: regular rate, regular rhythm and No murmurs present (Cardio) RATE: regular rate RHYTHM: regular rhythm GI: COMMON NORMALS: Soft to palpation and No hepatosplenomegaly present AUSCULTATION: Yes normoactive bowel sounds PALPATION: Yes Soft to palpation, No Tenderness to palpation present (GI), No Guarding due to palpation present (GI) and Yes No hepatosplenomegaly present Extremity: COMMON NORMALS: normal to inspection, capillary refill normal, no clubbing, cyanosis or edema, no calf tenderness and no pedal edema Neuro: SENSORIUM/ORIENTATION: Yes oriented to person, Yes oriented to place and Yes oriented to time Skin: COMMON NORMALS: no rashes or lesions noted GENERAL SKIN EXAM: no rashes or lesions noted Course Vital Signs: Vital signs: Vital Signs Temperature 98.3 F 11/04/22 12:24 Pulse Rate 64 11/04/22 14:49 Respiratory Rate 18 11/04/22 12:24 Blood Pressure 132/87 11/04/22 16:00 Pulse Oximetry 90 11/04/22 16:00 Oxygen Delivery Me thod 11/04/22 12:50 MDM - Abdominal Pain Medical Decision Making Labs reviewed. EKG shows no acute changes. Abdominal exam is benign. Suspect patient had a vasovagal syncopal episode. Patient asked about the right-sided flank pain has been a chronic long ongoing problem for her. I do not believe it is due to her fatty liver is a chronic condition generally is relatively asymptomatic in the early stages she did not have elevation of her liver enzymes. Improved with fluids vital signs stable discharge home follow-up with primary care Medical Records I reviewed the patient's medical records. Lab Data I reviewed the patient's lab results. 11/04/22 13:43 11/04/22 13:43 Labs/Radiology: Laboratory Results WBC 8.4 10^3/uL (4.0-10.0) 11/04/22 13:43 RBC 5.06 10^6/uL (4.1-5.3) 11/04/22 13:43 Hgb 15.1 g/dL (11.5-15.3) 11/04/22 13:43 Hct 46.0 % (37.0-47.0) 11/04/22 13:43 MCV 90.9 fl (81-99) 11/04/22 13:43 MCH 29.8 pg (28.0-34.0) 11/04/22 13:43 MCHC 32.8 g/dL (30.0-36.0) 11/04/22 13:43 RDW 12.7 % (12.1-15.1) 11/04/22 13:43 Plt Count 314 10^3/cmm (130-400) 11/04/22 13:43 MPV 9.6 fL (7.4-10.4) 11/04/22 13:43 Neut % (Auto) 65.6 % 11/04/22 13:43 Lymph % (Auto) 21.1 % 11/04/22 13:43 [place] % (Auto) 8.9 % 11/04/22 13:43 Eos % (Auto) 3.0 % 11/04/22 13:43 Baso % (Auto) 0.8 % 11/04/22 13:43 Neut # (Auto) 5.54 10^3/uL (1.8-7.7) 11/04/22 13:43 Lymph # (Auto) 1.8 10^3/uL (0.8-4.8) 11/04/22 13:43 [place] # (Auto) 0.8 10^3/uL (0.2-0.9) 11/04/22 13:43 Eos # (Auto) 0.3 10^3/uL (0.0-0.8) 11/04/22 13:43 Baso # (Auto) 0.1 10^3/uL (0.0-0.1) 11/04/22 13:43 Nucleated RBC % (auto) 0 % 11/04/22 13:43 Nucleated RBCs # 0.0 /100WBC 11/04/22 13:43 Sodium 137 mmol/L (136-145) 11/04/22 13:43 Potassium 4.7 mmol/L (3.5-5.1) 11/04/22 13:43 Chloride 101 mmol/L (98-107) 11/04/22 13:43 Carbon Dioxide 27 mmol/L (22-29) 11/04/22 13:43 Anion Gap 13.7 (5-19) 11/04/22 13:43 BUN 17 mg/dL (6-20) 11/04/22 13:43 Creatinine 1.0 mg/dL (0.5-0.9) H 11/04/22 13:43 GFR Calculation 60.0 mL/min (90-130) L 11/04/22 13:43 Glucose 108 mg/dL (65-115) 11/04/22 13:43 Calculated Osmolality 286 mOsm/kg (285-295) 11/04/22 13:43 Calcium 9.6 mg/dL (8.5-10.5) 11/04/22 13:43 Total Bilirubin 0.5 mg/dL (0.15-1.2) 11/04/22 13:43 AST 29 U/L (0-32) 11/04/22 13:43 ALT 42 U/L (0-33) H 11/04/22 13:43 Alkaline Phosphatase 57 U/L (35-105) 11/04/22 13:43 Total Protein 7.9 g/dL (6.6-8.7) 11/04/22 13:43 Albumin 4.4 g/dL (3.5-5.2) 11/04/22 13:43 Globulin 3.5 g/dL (1.3-4.6) 11/04/22 13:43 Urine Color [place] (Yellow) 11/04/22 14:23 Urine Appearance Clear (CLEAR) 11/04/22 14:23 Urine pH 8 (5-7) H 11/04/22 14:23 Ur Specific [place] 1.015 (1.005-1.030) 11/04/22 14:23 Urine Protein Neg (Negative) 11/04/22 14:23 Urine Glucose (UA) Norm (Normal) 11/04/22 14:23 Urine Ketones Negative (Negative) 11/04/22 14:23 Urine Blood Neg (Negative) 11/04/22 14:23 Urine Nitrate Negative (Negative) 11/04/22 14:23 Urine Bilirubin Neg (Negative) 11/04/22 14:23 Prot Sulfosalicylic Acd Negative (Negative) 11/04/22 14:23 Urine Urobilinogen Norm mg/dL (Negative) 11/04/22 14:23 Ur Leukocyte Esterase Negative (Negative) 11/04/22 14:23 Urine RBC None /hpf (0-2) 11/04/22 14:23 Urine WBC 0-4 /hpf (0-5) H 11/04/22 14:23 Ur Squamous Epith Cells 0-4 /hpf (0-5) H 11/04/22 14:23 Amorphous Sediment Not Reportable 11/04/22 14:23 Urine Bacteria 4+ /hpf (NONE) H 11/04/22 14:23 Discharge Plan Discharge Patient Disposition: Home Clinical Impression: Vasovagal episode, Fatty liver Condition: Stable Prescriptions: No Action meloxicam 15 mg tablet 15 mg PO DAILY Hold Instructions: Doctor's Order Protonix 40 mg tablet,delayed release (DR/EC) 40 mg PO DAILY 30 Days Qty: 30 3RF escitalopram oxalate 20 mg tablet 20 mg PO QAM Qty: 30 5RF estradiol 0.025 mg/24 hr patch weekly 1 patch transdermal .weekly Qty: 12 3RF Rx Instructions: do not apply near the breast tissue levothyroxine 150 mcg tablet 150 mcg PO DAILY Qty: 90 1RF (DME) pen needle, diabetic 33 gauge x 5/32 needle See Rx Instructions .ROUTE .MEDSUPPLY Qty: 100 5RF Rx Instructions: 1 time day Victoza 3-Logan 0.6 mg/0.1 mL (18 mg/3 mL) pen injector 1.8 mg SUBCUT DAILY Qty: 9 0RF fenofibrate 160 mg tablet 160 mg PO DAILY Qty: 30 2RF epinephrine 0.3 mg/0.3 mL auto-injector See Rx Instructions .ROUTE .COMPLEX Rx Instructions: USE DIRECTED PRN levocetirizine [Xyzal] 5 mg Tablet 5 mg PO BID Discharge Orders: Discharge ED (Routine); Ordered 11/04/22 Ordered By: Geronimo Schwartz Referrals: Sera Springer, ANAMARIA [Primary Care Provider] - Patient Instructions: Opioid Safety, Pain Management Activity Restrictions/Additional Instructions: You were seen today for a syncopal episode. Based on your history and your exam suspect we suspect you had a vasovagal episode. Your abdominal exam and your laboratory tests were not significantly abnormal. If you continue to have symptoms follow-up with your primary care provider. Coding Level of Care Code ED Wheel Cutter for Chg Fwd Exam Detailed
[2022-11-04] MEDS: sodium chloride 0.9% 1,000 ML 999 ML IV (13:27)
[2022-11-04 13:48] LABS: Basophils # 0.1 10^3/uL (0.0-0.1); Basophils % 0.8 %; Eosinophils # 0.3 10^3/uL (0.0-0.8); Hemoglobin 15.1 g/dL (11.5-15.3); Lymphocytes # 1.8 10^3/uL (0.8-4.8); Lymphocytes % 21.1 %; Mean Corpuscular HGB Conc 32.8 g/dL (30.0-36.0); Mean Corpuscular Hemoglobin 29.8 pg (28.0-34.0); Mean Corpuscular Volume 90.9 fl (81-99); Mean Platelet Volume 9.6 fL (7.4-10.4); Monocytes # 0.8 10^3/uL (0.2-0.9); Monocytes % 8.9 %; Neutrophils # 5.54 10^3/uL (1.8-7.7); Neutrophils % 65.6 %; Nucleated Red Blood Cells % 0 %; Platelet Count 314 10^3/cmm (130-400); Red Blood Count 5.06 10^6/uL (4.1-5.3); Red Cell Distribution Width 12.7 % (12.1-15.1); White Blood Count 8.4 10^3/uL (4.0-10.0)
[2022-11-04 14:06] LABS: Alanine Aminotransferase 42 U/L (0-33); Albumin Level 4.4 g/dL (3.5-5.2); Alkaline Phosphatase 57 U/L (35-105); Anion Gap 13.7 (5-19); Aspartate Amino Transferase 29 U/L (0-32); Blood Urea Nitrogen 17 mg/dL (6-20); Calcium 9.6 mg/dL (8.5-10.5); Carbon Dioxide 27 mmol/L (22-29); Chloride 101 mmol/L (98-107); Globulin 3.5 g/dL (1.3-4.6); Glucose 108 mg/dL (65-115); Osmolality Calculated 286 mOsm/kg (285-295); Potassium 4.7 mmol/L (3.5-5.1); Sodium 137 mmol/L (136-145); Total Bilirubin 0.5 mg/dL (0.15-1.2); Total Protein 7.9 g/dL (6.6-8.7)
[2022-11-04 14:37] LABS: Add Urine Culture? Yes; Add Urine Microscopic? YES; Bacteria Urine 4+ /hpf; Bilirubin Urine Neg (Negative); Blood Urine Neg (Negative); Glucose Urine UA Norm (Normal); Ketones Urine Negative (Negative); Leukocyte Esterase Urine Negative (Negative); Nitrate Urine Negative (Negative); Protein Urine Neg (Negative); Specific Gravity, Urine 1.015 (1.005-1.030); Squamous Epithelial Cell Urine 0-4 /hpf (0-5); Sulfosalicylic Acid Urine Negative (Negative); Urine Appearance Clear (CLEAR); Urine Color Amber (Yellow); Urobilinogen Urine Norm (Negative); WBC Urine 0-4 /hpf (0-5); pH Urine 8 (5-7)
== END 2022-11-04 16:07 | disposition home or self-care (01) ==
PROVIDERS: Emergency Provider Family Medicine; PCP Nurse Practitioner
DX: R55 Syncope and collapse (principal); K76.0 Fatty (change of) liver, not elsewhere classified; Z87.891 Personal history of nicotine dependence
CPT/HCPCS: 80053; 81001; 85025; 87086; 93005; 96360; 99284; J7030

== ENCOUNTER → 2022-12-22 09:19 | Outpatient (BNVA) | payer OTHER, SELFPAY | PROVIDERS: PCP Nurse Practitioner; Visit Provider Nurse Practitioner | DX: F41.9 Anxiety disorder, unspecified (principal); F32.A Depression, unspecified; E03.9 Hypothyroidism, unspecified; G47.30 Sleep apnea, unspecified; E55.9 Vitamin D deficiency, unspecified; M79.10 Myalgia, unspecified site; E66.9 Obesity, unspecified; E78.1 Pure hyperglyceridemia; J06.9 Acute upper respiratory infection, unspecified; K29.90 Gastroduodenitis, unspecified, without bleeding | CPT/HCPCS: 80053; 80061; 82306; 82607; 84443; 85025; 85651 ==

== ENCOUNTER 2022-12-23 10:40 | Outpatient (CLI) | payer OTHER, SELFPAY ==
--- NOTE | 2022-12-23 10:53 | MM_ITS ---
WS: [id number] SCREENING DIGITAL TOMOSYNTHESIS MAMMOGRAM WITH CAD HISTORY: Z12.39 - Encounter for other screening for malignant neoplasm COMPARISON: 11/25/2021 Bilateral CC and MLO with tomosynthesis views submitted. Synthetic mammography reviewed. Computer aid ed detection analyzed. Breast composition: There are scattered areas of fibroglandular density. No suspicious masses, microc alcifications or architectural distortion. MM/[place] [id number] IMPRESSION: BI-RADS: 1-Negative FOLLOW UP: 1 Year Follow-up
== END 2022-12-23 10:41 | disposition home or self-care (01) ==
PROVIDERS: PCP Nurse Practitioner; Visit Provider Nurse Practitioner Women's Health
DX: Z12.31 Encounter for screening mammogram for malignant neoplasm of breast (principal)
CPT/HCPCS: 77063; 77067

== ENCOUNTER 2023-01-07 07:47 | Outpatient (CLI) | payer OTHER, SELFPAY ==
--- NOTE | 2023-01-07 09:15 | US_ITS ---
WS: [id number] RIGHT UPPER QUADRANT ULTRASOUND HISTORY: K76.0 - Fatty (change of) liver, not elsewhere classified COMPARISON: 05/14/2021 CT. Liver: 19.5 cm in length. Severe hepatic steatosis with moderate hepatomegaly. No bile duct dilatatio n. Portal Vein: Normal hepatopetal flow with monophasic waveform. Gallbladder: Status post cholecystectomy. CBD: 0.5 cm Pancreas: Not visualized. Right kidney: 11.9 cm in length. Normal size and echogenicity. No hydronephrosis or mass. Aorta and IVC: Unremarkable abdominal aorta and IVC. No ascites. US/US liver [id number] IMPRESSION: 1. Prior cholecystectomy. 2. Severe hepatic steatosis with moderate hepatomegaly. 3. Nonvisualization pancreas.
== END 2023-01-07 07:48 | disposition home or self-care (01) ==
PROVIDERS: PCP Nurse Practitioner; Visit Provider Nurse Practitioner
DX: K76.0 Fatty (change of) liver, not elsewhere classified (principal); R16.0 Hepatomegaly, not elsewhere classified
CPT/HCPCS: 76705

== ENCOUNTER 2023-03-07 14:38 | Emergency (ER) | payer OTHER, SELFPAY ==
[2023-03-07 14:50] VITALS: BP 148/77; PULSE 79; RESP 16; TEMP 36.8; O2SAT 99
--- NOTE | 2023-03-07 15:00 | ED_ITS ---
HPI - Allergic Reaction General: Chief complaint: Allergic Reaction Stated complaint: allergic reaction used epi pen Time Seen by Provider: 03/07/23 14:42 History of Present Illness: HPI narrative: Patient is a 47-year-old female comes to the ED with allergic reaction. Patient says she has allergies to many plants and pollen that is why she currently has an EpiPen. She says today at around 1 PM this afternoon her eyes started swelling, itching and her throat started feeling tight and itchy as well. She reported having some wheezing at that time as well. She then used her EpiPen at around 1:30 PM today. She also took 25 mg of Benadryl as well. Swelling of eyes, wheezing have improved after epi. Patient says her throat feels little better but is still little itchy. Denies any lip or tongue swelling, rash, vomiting, bladder or bowel symptoms. Associated symptoms: Deny abdominal pain, nausea, tongue swelling or vomiting Review of Systems Const: Denies: fever(s), chills or fatigue Eyes: Denies: change in vision or eye discomfort ENMT: Denies: throat pain, odynophagia, nasal discharge or nasal congestion Card: Denies: chest pain, palpitations, edema, swelling of feet/ankles, dyspnea on exertion or orthopnea Resp: Denies: dyspnea, productive cough or non-productive cough GI: Denies: abdominal pain, nausea, vomiting, diarrhea, constipation or hematochezia : Denies: flank pain, dysuria or hematuria Musc: Denies: neck pain, back pain or extremity swelling Skin/Breast: Denies: rash or new lesions Neuro: Denies: headache(s), numbness in extremities or weakness in extremities All/Imm: Reports: throat swelling, acute wheezing and itchy eyes; Denies: tongue swelling PFS ED PFSH: Medical History Colitis Esophagitis determined by endoscopy Hypertriglyceridemia Hypothyroidism IBS (irritable bowel syndrome) Metabolic syndrome Morbid obesity No pertinent past medical history neghx: htn,dm,dvt/pe PCP: [facility] Obesity, Class II, BMI 35-39.9 Sleep apnea Surgical History H/O rhinoplasty (~2002) History of 1)-2000 2)-2005 History of cholecystectomy History of hysterectomy (~06/29/18) Diagnostic laparoscopy with total abdominal hysterectomy performed by Dr. Mendoza for pelvic pain and abnormal uterine bleeding. Multiple omental and bladder adhesions noted. 1. Cervix: Benign cervical mucosa. 2. Cul-de-sac peritoneum: No significant histopathologic alteration. 3. Lower uterine segment/endocervical canal: Mucosal attenuation. 4. Endometrium: Proliferative endometrium. 5. Myometrium: Small leiomyoma. Superficial adenomyosis. 6. Right adnexa: Normal fallopian tube. 7. Left adnexa: Normal fallopian tube Hx of dilation and curettage (~04/07/17) 04/07/2017, Performed per Dr. Mendoza due to incomplete Hx of thyroidectomy (~05/16/18) Performed in [place] due to cancer Family History Father Diabetes Heart disease Hypercholesteremia Hypertension Grandfather Heart disease Maternal and Paternal Hypercholesteremia Maternal and Paternal Hypertension Maternal and Paternal Mother Thyroid disease Heart disease Hypercholesteremia Hypertension Grandmother Hypercholesteremia Maternal and Paternal Hypertension Paternal Brother Hypertension Denies family history of Colon cancer Ovarian cancer Breast cancer Uterine cancer Stroke Social History Smoking and tobacco status: former smoker Second hand smoke exposure: No Smoking risk assessment/counseling performed?: No Alcohol intake: unknown Desire information about alcohol rehabilitation?: No Counseling given: No Substance/Drug Use: unknown Desire information about substance/drug rehabilitation?: No Counseling given: No Adopted: No Caregiver/support person: No Lives independently: Yes Household members: spouse and children Housing: House Marital status: Number of children: 2 service: No Current occupational status: employed Pets and animals: Yes Pets & animals: dog(s) Do you think of yourself as: Straight/Heterosexual Current gender identity: Female Physical Exam Const: COMMON NORMALS: no acute distress, patient oriented x3 and alert GENERAL APPEARANCE: cooperative HENMT: COMMON NORMALS: normocephalic HEAD & SCALP: normocephalic MOUTH: Normal oral and palatal mucosa present, lip normal and tongue normal THROAT: posterior oropharynx normal and uvula midline Neck/C-Spine: COMMON NORMALS: supple GENERAL: Yes normal visual inspection Resp: COMMON NORMALS: normal respiratory effort, No retractions, No use of accessory muscles and clear to auscultation bilaterally AUSCULTATION: clear to auscultation bilaterally Cardio: COMMON NORMALS: regular rate, regular rhythm, S1 normal heart sound present, S2 normal heart sound present, No gallops present (Cardio), No clicks present (Cardio), No murmurs present (Cardio) and Peripheral pulses 2+ throughout RATE: regular rate RHYTHM: regular rhythm HEART SOUNDS: S1 normal heart sound present and S2 normal heart sound present PERIPHERAL PULSES: Peripheral pulses 2+ throughout GI: COMMON NORMALS: Normal to inspection, nondistended, normoactive bowel sounds present, Soft to palpation, non-tender and no masses PALPATION: Yes Soft to palpation : COMMON NORMALS: Yes no CVA tenderness BLADDER/KIDNEY EXAM: Yes no CVA tenderness Back/Pelvis: COMMON NORMALS: no CVA tenderness Extremity: COMMON NORMALS: normal to inspection Neuro: COMMON NORMALS: patient oriented x3 SENSORIUM/ORIENTATION: Yes alert GAIT: Yes Normal gait present Skin: GENERAL SKIN EXAM: dry skin Course Vital Signs: Vital signs: Vital Signs Temperature 98.2 F 03/07/23 14:50 Pulse Rate 71 03/07/23 16:16 Respiratory Rate 23 H 03/07/23 16:16 Blood Pressure 158/87 03/07/23 15:16 Pulse Oximetry 95 03/07/23 16:16 Oxygen Delivery Me thod Room Air 03/07/23 16:16 MDM - Allergic Reaction Medical Decision Making Patient is a 47-year-old female comes to the ED with allergic reaction. Patient says she has allergies to many plants and pollen that is why she currently has an EpiPen. She says today at around 1 PM this afternoon her eyes started swe lling, itching and her throat started feeling tight and itchy as well. She reported having some wheezing at that time as well. She then used her EpiPen at around 1:30 PM today. She also took 25 mg of Benadryl as well. Swelling of eyes, wheezing have improved after epi. Patient says her throat feels little better but is still little itchy. Denies any lip or tongue swelling, rash, vomiting, bladder or bowel symptoms. Vitals are stable. Exam of patient is benign and she appears in no acute distress or pain. No lip or tongue swelling noted. She was given IV fluids, Solu-Medrol, Benadryl and Pepcid here in the ED. Her symptoms completely resolved and she was feeling back to normal. She was watched for over an hour and a half here in the ED and had no other rebound allergic reactions. She was stable for discharge home and diagnosed with allergic reaction. Sent home with a prescription for EpiPen and a couple days of prednisone. Told to follow-up with her PCP in the next week for reevaluation. Return to ED precautions given. Patient understood and agreed with plan Discharge Plan Discharge Patient Disposition: Home Clinical Impression: Allergic reaction Condition: Stable Prescriptions: New EpiPen 2-Logan 0.3 mg/0.3 mL auto-injector 0.3 mg IM Q20M PRN (Reason: anaphylaxis) Qty: 2 0RF Rx Instructions: for 2 doses prednisone 20 mg tablet 20 mg PO BID 3 Days Qty: 6 0RF No Action meloxicam 15 mg tablet 15 mg PO DAILY Hold Instructions: Doctor's Order estradiol 0.05 mg/24 hr patch weekly 1 patch topical .weekly Qty: 12 0RF promethazine-DM 6.25-15 mg/5 mL syrup 5 ml PO .2 times day Qty: 120 0RF levothyroxine 137 mcg tablet 137 mcg PO DAILY Qty: 30 2RF Rx Instructions: dose decrease cholecalciferol (vitamin D3) 125 mcg (5,000 unit) capsule 125 mcg PO DAILY Qty: 30 2RF bupropion HCl 75 mg tablet 75 mg PO .AM Qty: 30 1RF escitalopram oxalate 20 mg tablet 20 mg PO QAM Qty: 30 1RF fenofibrate 160 mg tablet 160 mg PO DAILY Qty: 30 1RF Protonix 40 mg tablet,delayed release (DR/EC) 40 mg PO DAILY Qty: 30 1RF metformin 500 mg tablet extended release 24 hr 1,000 mg PO DAILY Qty: 60 1RF naltrexone 50 mg tablet 50 mg PO DAILY Qty: 30 1RF epinephrine 0.3 mg/0.3 mL auto-injector See Rx Instructions .ROUTE .COMPLEX Rx Instructions: USE DIRECTED PRN levocetirizine [Xyzal] 5 mg Tablet 5 mg PO BID Discharge Orders: Discharge ED (Routine); Ordered 03/07/23 Ordered By: Rony Dailey Referrals: Racheal,Glennette R, REIMBURSEMENT ANALYST-C [Primary Care Provider] - Discharge Diet: Regular Discharge Activity: Increase activity as tolerated Patient Instructions: Allergic Reaction Activity Restrictions/Additional Instructions: Follow-up with medical provider as directed in the next 5 to 7 days for reevaluation. Take medications as prescribed. You can start taking your prescribed prednisone tomorrow since she received steroid dose here in the ED today. Return to the ER or your medical provider if condition worsens. Please read and understand discharge instructions. Thank you for choosing [facility] for your healthcare needs today. Please realize this is an emergency room and that we are providing you with a medical screening exam and this may not be complete and all inclusive of all the testing and or work up that you may need to determine your ailment or severity of your illness. It is very important that you follow up as instructed or that you return to the Emergency Department should you have concerns or if your condition changes or worsens in any way. Coding Level of Care Code ED Veneer Jointer for Chad Muniz
[2023-03-07] MEDS: diphenhydrAMINE 50 mg/mL SDV 1mL 25 MG IVP (15:15)
[2023-03-07] MEDS: sodium chloride 0.9% 1,000 ML 999 ML IV (15:15)
[2023-03-07] MEDS: famotidine 20 mg/2 mL INJ 40 MG IVP (15:15)
[2023-03-07 15:16] VITALS: BP 158/87; PULSE 68; RESP 21; O2SAT 98
[2023-03-07 16:16] VITALS: PULSE 71; RESP 23; O2SAT 95
[2023-03-07 16:31] VITALS: BP 119/61; PULSE 71; RESP 23; O2SAT 95
== END 2023-03-07 16:32 | disposition home or self-care (01) ==
PROVIDERS: Emergency Provider Physician Assistant; PCP Nurse Practitioner
DX: T78.40XA Allergy, unspecified, initial encounter (principal); Z79.84 Long term (current) use of oral hypoglycemic drugs; Z87.891 Personal history of nicotine dependence; X58.XXXA Exposure to other specified factors, initial encounter
CPT/HCPCS: 96374; 96375; 99284; J1200; J2930; J3490; J7030

== ENCOUNTER → 2023-03-08 10:20 | Outpatient (BNVA) | payer OTHER, SELFPAY | PROVIDERS: PCP Nurse Practitioner; Visit Provider Nurse Practitioner | DX: E03.9 Hypothyroidism, unspecified (principal); E55.9 Vitamin D deficiency, unspecified; Z79.899 Other long term (current) drug therapy | CPT/HCPCS: 80053; 82306; 83036; 84443; 85025 ==

== ENCOUNTER → 2023-03-10 10:21 | Outpatient (BNVA) | payer OTHER, SELFPAY | PROVIDERS: PCP Nurse Practitioner; Visit Provider Nurse Practitioner | DX: M25.572 Pain in left ankle and joints of left foot (principal) | CPT/HCPCS: 73610 ==

== ENCOUNTER 2023-03-23 07:59 | Outpatient (CLI) | payer OTHER, SELFPAY ==
--- NOTE | 2023-03-23 08:30 | CT_ITS ---
WS: [id number] CT SINUSES TECHNIQUE: Noncontrast CT of the paranasal sinuses with coronal and sagittal reformatted images. CLINICAL INFORMATION: J30.89 - Other allergic rhinitis COMPARISON: None. DLP: 330.[address] scans at [facility] use at least one of these dose optimization techniques: automated e xposure control; mA and/or kV adjustment per patient size (includes targeted exams where dose is matc hed to clinical indication); or iterative reconstruction. FINDINGS: LEFT to RIGHT nasal septal deviation measuring 4 mm. Normal posterior nasopharynx. Normal parapharyng eal fat. Partially visualized mastoid air cells well aerated. Mild narrowing of the ostiomeatal units bilaterally with mild mucosal thickening. RIGHT middle turbinate protrudes into the RIGHT maxillary sinus. Hypoplastic frontal sinuses. Mild mucosal thickening ethmoid air cells. Maxillary sinus is wel l aerated. Sphenoid sinuses are well aerated. Small bilateral Dino cells. CT/CT sinus wo con* [id number] IMPRESSION: 1. LEFT to RIGHT nasal septal deviation measuring 4 mm. 2. Paranasal sinuses are well aerated. 3. Protuberant RIGHT middle turbinate extends into the RIGHT maxillary sinus. 4. Mild narrowing of the ostiomeatal units bilaterally with mild mucosal thick ening. Small RIGHT greater than LEFT Dino cells. 5. Mastoid air cells well aerated. 6. No other acute findings.
== END 2023-03-23 08:00 | disposition home or self-care (01) ==
PROVIDERS: PCP Nurse Practitioner; Visit Provider Nurse Practitioner
DX: D72.829 Elevated white blood cell count, unspecified (principal); J30.2 Other seasonal allergic rhinitis; J30.89 Other allergic rhinitis
CPT/HCPCS: 70486; 81000

== ENCOUNTER → 2023-06-22 14:34 | Outpatient (BNVA) | payer OTHER, SELFPAY | PROVIDERS: PCP Nurse Practitioner; Visit Provider Nurse Practitioner | DX: E03.9 Hypothyroidism, unspecified (principal) | CPT/HCPCS: 80053; 81000; 84443 ==

== ENCOUNTER → 2023-07-09 10:05 | Outpatient (BNVA) | payer OTHER, SELFPAY | PROVIDERS: PCP Nurse Practitioner; Visit Provider Nurse Practitioner | DX: N18.2 Chronic kidney disease, stage 2 (mild) (principal) | CPT/HCPCS: 81000; 85025 ==

== ENCOUNTER → 2023-09-09 08:04 | Outpatient (BNVA) | payer OTHER, SELFPAY | PROVIDERS: PCP Nurse Practitioner; Visit Provider Physician Assistant | DX: G56.22 Lesion of ulnar nerve, left upper limb | CPT/HCPCS: 73130 ==

== ENCOUNTER → 2023-09-15 11:13 | Outpatient (BNVA) | payer OTHER, SELFPAY | PROVIDERS: PCP Nurse Practitioner; Visit Provider Nurse Practitioner | DX: E03.9 Hypothyroidism, unspecified (principal) | CPT/HCPCS: 80053; 84443 ==

== ENCOUNTER 2023-10-14 11:14 | Day surgery (SDC) | payer OTHER, SELFPAY ==
[2023-10-14] VITALS (10 sets, daily range): BP systolic 108–138; BP diastolic 76–90; PULSE 64–76; RESP 16–22; TEMP 36.1–36.8; O2SAT 92–99
[2023-10-14] MEDS: acetaminophen 1,000 MG/100 ML PIGGYBACK 400 MG IV (12:25)
[2023-10-14] MEDS: ketorolac 30 mg/mL INJ IVP (12:25)
[2023-10-14] MEDS: scopolamine 1.5 Patch 1 PATCH TRANSDERMA (12:25)
[2023-10-14] MEDS: sodium chloride 0.9% 1,000 ML 30 ML IV (12:26)
--- NOTE | 2023-10-14 13:44 | P.HP_ITS ---
Same Day Surgery H&P Indication for Procedure/HPI DATE OF PROCEDURE: October 14, 2023 CHIEF COMPLAINT/INDICATIONFOR SURGICAL PROCEDURE: Left cubital tunnel syndrome PREOP DIAGNOSIS: Left cubital tunnel syndrome PLANNED PROCEDURE: Operation Date: 10/14/23 13:55 Proposed Procedures p Left Cubital Tunnel Release(Left) - Samy Dailey DO s Possible Left Ulnar Nerve Transposition(Left) - Samy Dailey DO Medications/Allergies* Allergies/Adverse Reactions Allergy/AdvReac Type Severity Reaction Status Date / Time wheat Allergy Mild GI issues Verified 10/14/23 12:08 Flu Shot Allergy ADR-Vomitin Uncoded 09/15/23 10:46 g Current Medications: Generic Name Dose Route Start Last Admin Trade Name Freq PRN Reason Stop Dose Admin Sodium Chloride 1,000 mls @ 30 mls/hr 10/14/23 12:00 10/14/23 12:26 Sodium Chloride 0.9% IV 10/15/23 11:59 30 mls/hr .Q24H GODWIN Administration Pertinent History/Comorbid Conditions* Medical History (Updated 09/09/23 @ 08:51 by JUAN PABLO Ortiz) CKD (chronic kidney disease) stage 2, GFR 60-89 ml/min Seasonal and perennial allergic rhinitis Metabolic syndrome Hypertriglyceridemia Obesity, Class II, BMI 35-39.9 No pertinent past medical history neghx: htn,dm,dvt/pe PCP: Shai aguirre IBS (irritable bowel syndrome) Colitis Esophagitis determined by endoscopy Morbid obesity Sleep apnea Hypothyroidism Surgical History (Updated 04/12/23 @ 15:02 by Zachary Montenegro MD) Hx of sinus surgery History of nasal septoplasty History of hysterectomy (~06/29/18) Diagnostic laparoscopy with total abdominal hysterectomy performed by Dr. Mendoza for pelvic pain and abnormal uterine bleeding. Multiple omental and bladder adhesions noted. 1. Cervix: Benign cervical mucosa. 2. Cul-de-sac peritoneum: No significant histopathologic alteration. 3. Lower uterine segment/endocervical canal: Mucosal attenuation. 4. Endometrium: Proliferative endometrium. 5. Myometrium: Small leiomyoma. Superficial adenomyosis. 6. Right adnexa: Normal fallopian tube. 7. Left adnexa: Normal fallopian tube Hx of dilation and curettage (~04/07/17) 04/07/2017, Performed per Dr. Mendoza due to incomplete H/O rhinoplasty (~2002) Hx of thyroidectomy (~05/16/18) Performed in [place] due to cancer History of 1)-2000 2)-2006 History of cholecystectomy Family History (Updated 07/24/22 @ 15:10 by Medina Quesada) Diabetes Father Heart disease Father Grandfather Maternal and Paternal Mother Hypercholesteremia Father Grandfather Maternal and Paternal Mother Grandmother Maternal and Paternal Hypertension Father Grandfather Maternal and Paternal Mother Grandmother Paternal Brother Thyroid disease Mother Denies family history of Colon cancer Ovarian cancer Breast cancer Uterine cancer Stroke Social History Smoking and tobacco/nicotine status: former use of tobacco/nicotine Second hand smoke exposure: No Alcohol intake: unknown Substance/Drug Use: unknown Adopted: No Caregiver/support person: No Lives independently: Yes Household members: spouse and children Housing: House Marital status: Number of children: 2 service: No Current occupational status: employed Pets and animals: Yes Pets & animals: dog(s) Do you think of yourself as: Straight/Heterosexual Current gender identity: Female Pertinent Exam Findings alert, oriented x 3, operative site marked and procedure specific exam findings Left Hand exam-Negative Tinel's and Negative Phalen's test. No thenar muscle weakness or atrophy. Full range of motion in fingers and wrist and fingers are warm and well-perfused with normal cap refill under 2 seconds. Radial pulse 2+, intrinsic muscle weakness noted Elbow exam-Positive Tinel's test and Positive Phalen's. Recommendations Surgery/Procedure today Other Plans: Plan to proceed to the OR today with a left cubital tunnel release with possible ulnar nerve transposition. Patient understands and outs procedure risk benefits complication alternatives surgery risk of surgery include not limited to make it better make it worse infection, persistent paresthesias and pain, postoperative hematoma understanding risk of surgery elects to proceed with surgical intervention all questions answered at this time. Coding Level of Care Code Acute Code for Chg Fwd
[2023-10-14] MEDS: ceFAZolin 2,000 MG in sodium chloride 0.9% (plus) 50 ML 100 MG IV (14:13)
[2023-10-14] MEDS: lidocaine 1% INJ 10 mL (per mL) 5 ML INJECTION (14:47)
[2023-10-14] MEDS: ROPivacaine 0.5% SDV 30 mL 25 MG INJECTION (14:48)
--- NOTE | 2023-10-14 15:04 | W.PM.BPON ---
Date of Procedure: 10/14/2023 Surgeon: Samy Dailey DO Process Improvement Engineer(s): None Procedure(s) performed: Left cubital tunnel release (ulnar nerve decompression at the elbow) Findings of the procedure(s): Left cubital tunnel syndrome patient underwent left cubital tunnel release without any issues or complications. Estimated blood loss: 2 mL Specimen(s) removed: None Post-operative diagnosis: Left cubital tunnel syndrome
--- NOTE | 2023-10-14 15:05 | PM.OP ---
Operative Report Date of procedure: October 14, 2023 Pre-op diagnosis: Left Cubital Tunnel Syndrome Surgeon: Samy Dailey DO Procedure: Postop Diagnosis: Same Procedure done: Left?cubital?tunnel tunnel release (ulnar nerve decompression at elbow) Surgeon: Samy Dailey DO Estimated blood loss: 2mL Tourniquet? 15 minutes IV fluids: 800 mL Complications: None Findings: See operative report narrative Condition: stable Disposition: same day Brief History: Patient's been seen and worked up in the outpatient setting and findings consistent with preoperative diagnosis.? Patient has Left?cubital?tunnel syndrome which has been worked up in the outpatient setting has physical exam findings consistent with this as well as confirmatory nerve conduction/EMG nerve conduction study consistent with diagnosis.? Patient's failed conservative treatment.? As result through shared decision making agreed to proceed with Left?cubital?tunnel release we talked about treatment options as far as nonoperative and operative intervention.? Understands risk benefits complication alternatives surgical nonsurgical treatment options.? Understanding his risks he agrees to proceed with surgical intervention. Understanding these risks he agrees to proceed with surgery.? Consent obtained in office. Procedure: Patient seen evaluate in the preoperative holding area.? Consent was reviewed and signed with patient.? Correct extremity marked.? Patient seen evaluated by anesthesia department once cleared for surgery was then taken back to the operative suite placed in supine position all bony prominences well-padded patient properly secured to bed.? Left upper extremity placed onto armboard.? Nonsterile tourniquet applied Left upper arm.? Patient then underwent anesthesia per the anesthesia department.? Patient's Left upper extremity was then prepped and draped in standard orthopedic fashion.? Final timeout performed.? Patient received appropriate preoperative antibiotics. Esmarch was used exsanguinate the Left upper extremity.? Tourniquet was insufflated to 250 mmHg. Next marked out the landmarks of the Left elbow of the medial epicondyle and olecranon and made a curvilinear incision following the course of the ulnar nerve at the medial aspect of the elbow.? Sharp scalpel incision was made through skin and subcutaneous tissue.? Next I switched to Littler dissection scissors and spread in plane of the medial antebrachial cutaneous nerve branching which was protected throughout this part of the dissection.? Then I directly came down over the fascia and identified the 2 heads of the FCU fascia and split this Left in the middle and subsequently identified my ulnar nerve distally.? This was then completely released distally under direct visualization and loupe magnification.? Once the nerve was then identified I then subsequently tracked this proximally and released this through Braun's ligament as well as complete decompression of the nerve proximally all the way past the intermuscular septum.? The nerve was completely released and decompressed both proximally and distally.? Ulnar nerve neurolysis performed and completed both proximally and distally with dissection scissors.? I then took the elbow through range of motion and there was no instability or subluxating of the ulnar nerve.? This completed?cubital?tunnel release.? ?Next the wound bed was thoroughly irrigated.? Tourniquet was deflated.? Hemostasis was satisfactory at the?cubital?tunnel release surgery site. I then inspected the carpal tunnel incision and this was found to have satisfactory hemostasis and all this was maintained through bipolar electrocautery.? At this point time I sequentially closed?cubital?tunnel site with 3-0 Vicryl suture in a running horizontal mattress nylon stitch.? ? The carpal tunnel release surgery was then closed in standard interrupted mattress fashion.? Dressing was Xeroform 4 x 4's ABD Curlex soft roll and an Eben wrap has a bulky soft dressing. Patient was then awakened from anesthesia and taken to PACU in stable condition. Disposition: Patient taken to PACU in stable condition recovering well.? Patient will receive appropriate discharge instructions as well as pain medication postoperatively.? We will follow-up with me in the office in 2 weeks.? Patient understands agrees with current plan.? All questions answered.? Pt understands if any questions or concerns and contact the office for follow-up appointment..
--- NOTE | 2023-10-14 15:33 | P.ANESASSM_ITS ---
Pre-Anesthetic Assessment Height/Weight: Height 1.7 m Weight 111.13 kg Temp Pulse Resp BP Pulse Ox O2 Del Method 97 F L 68 22 H 125/80 94 Room Air 10/14/23 15:16 10/14/23 15:26 10/14/23 15:26 10/14/23 15:26 10/14/23 15:26 10/14/23 15:26 Preop Diagnosis: Left cubital tunnel syndrome Operation Date: 10/14/23 13:55 Proposed Procedures p Left Cubital Tunnel Release(Left) - Samy Dailey DO s Possible Left Ulnar Nerve Transposition(Left) - Samy Dailey, DO Familial anesthetic complications: none Was Beta Jack taken within 24 hours: N/A Was Clonidine taken within 24 hours: N/A Last intake: Intake Last Liquid Date 10/13/23 Last Liquid Time 23:59 Last Solid Date 10/13/23 Last Solid Time 20:30 Social No alcohol and No tobacco Exam alert, oriented x 3, clear to auscultation bilaterally and regular rate & rhythm Airway Submandibular: within normal limits Cervical ROM: within normal limits Mallampati: Class II Dentition: full Pulmonary Sleep Apnea Chronic Renal Insufficiency GI Gastroesophageal Reflux Disease Metabolic Morbid Obesity and Thyroid Disease Neuropsych Anxiety and Depression Anesthetic Plan ASA status: 3 Anesthesia: General Medications/Allergies Home Medications Medication Instructions Recorded Confirmed Last Taken Type epinephrine 0.3 mg/0.3 mL 0.3 mg (0.3 mL) IM Q20M PRN 03/07/23 10/13/23 09/15/23 Rx injection, auto-injector (EpiPen anaphylaxis #2 ea 2-Logan) tramadol 50 mg tablet 50 mg PO Q6H PRN pain 5 days #20 09/09/23 10/13/23 Unknown Rx tabs bupropion HCl 150 mg tablet,12 hr 150 mg PO Q12H #60 tabs 09/15/23 10/13/23 10/12/23 Rx sustained-release famotidine 40 mg tablet (Pepcid) 40 mg PO BID #60 tabs 09/15/23 10/13/23 10/12/23 Rx fenofibrate 160 mg tablet 160 mg PO DAILY #30 tabs 09/15/23 10/13/23 10/12/23 Rx levocetirizine 5 mg tablet (Xyzal) 5 mg PO DAILY #30 tabs 09/15/23 10/13/23 10/12/23 Rx levothyroxine 137 mcg tablet See Rx Instructions PO DAILY #36 09/15/23 10/13/23 10/14/23 Rx tabs naltrexone 50 mg tablet 50 mg PO DAILY #30 tabs 09/15/23 10/13/23 10/12/23 Rx sucralfate 1 gram tablet (Carafate) 1 g PO BID #60 tabs 09/15/23 10/13/23 10/12/23 Rx estradiol 0.05 mg/24 hr weekly See Rx Instructions .Route 10/12/23 10/13/23 09/15/23 Rx transdermal patch .COMPLEX #12 patches ondansetron 4 mg disintegrating 4 mg PO Q8H PRN nausea and 10/14/23 Unknown Rx tablet vomiting 3 days #9 tabs Allergies Allergy/AdvReac Type Severity Reaction Status Date / Time wheat Allergy Mild GI issues Verified 10/14/23 12:08 Flu Shot Allergy ADR-Vomitin Uncoded 09/15/23 10:46 g Current Medications Generic Name Dose Route Start Last Admin Trade Name Freq PRN Reason Stop Dose Admin Sodium Chloride 1,000 mls @ 30 mls/hr 10/14/23 12:00 10/14/23 12:26 Sodium Chloride 0.9% IV 10/15/23 11:59 30 mls/hr .Q24H GODWIN Administration PFSH Anesthesia Medical History CKD (chronic kidney disease) stage 2, GFR 60-89 ml/min Colitis Esophagitis determined by endoscopy Hypertriglyceridemia Hypothyroidism IBS (irritable bowel syndrome) Metabolic syndrome Morbid obesity No pertinent past medical history neghx: htn,dm,dvt/pe PCP: [employer] [facility] clinic Obesity, Class II, BMI 35-39.9 Seasonal and perennial allergic rhinitis Sleep apnea Surgical History H/O rhinoplasty (~2002) History of 1)-2000 2)-2005 History of cholecystectomy History of hysterectomy (~06/29/18) Diagnostic laparoscopy with total abdominal hysterectomy performed by Dr. Mendoza for pelvic pain and abnormal uterine bleeding. Multiple omental and bladder adhesions noted. 1. Cervix: Benign cervical mucosa. 2. Cul-de-sac peritoneum: No significant histopathologic alteration. 3. Lower uterine segment/endocervical canal: Mucosal attenuation. 4. Endometrium: Proliferative endometrium. 5. Myometrium: Small leiomyoma. Superficial adenomyosis. 6. Right adnexa: Normal fallopian tube. 7. Left adnexa: Normal fallopian tube History of nasal septoplasty Hx of dilation and curettage (~04/07/17) 04/07/2017, Performed per Dr. Mendoza due to incomplete Hx of sinus surgery Hx of thyroidectomy (~05/16/18) Performed in [place] due to cancer Family History Father Diabetes Heart disease Hypercholesteremia Hypertension Grandfather Heart disease Maternal and Paternal Hypercholesteremia Maternal and Paternal Hypertension Maternal and Paternal Mother Thyroid disease Heart disease Hypercholesteremia Hypertension Grandmother Hypercholesteremia Maternal and Paternal Hypertension Paternal Brother Hypertension Denies family history of Colon cancer Ovarian cancer Breast cancer Uterine cancer Stroke Social History Smoking and tobacco/nicotine status: former use of tobacco/nicotine Second hand smoke exposure: No Alcohol intake: unknown Substance/Drug Use: unknown Adopted: No Caregiver/support person: No Lives independently: Yes Household members: spouse and children Housing: House Marital status: Number of children: 2 service: No Current occupational status: employed Pets and animals: Yes Pets & animals: dog(s) Do you think of yourself as: Straight/Heterosexual Current gender identity: Female Data Anesthesia Cardiac Studies: No Data to Display
--- NOTE | 2023-10-14 15:52 | ANE.PACU2 ---
Inpatient post-anesthesia follow up: Airway intact: Yes Vital signs: Temperature 98.2 F Pulse Rate 65 Respiratory Rate 16 Blood Pressure 129/79 Pulse Oximetry 92 Oxygen Delivery Me thod Room Air Oxygen Flow Rate Fraction of Inspir ed Oxygen Hydration adequate: Yes Nausea and vomiting: No Pain level: 2 Mental status: Baseline
[2023-10-14] MEDS: TRAMadol 50 mg Tablet PO (16:05)
== END 2023-10-14 15:30 | disposition home or self-care (01) ==
PROVIDERS: PCP Nurse Practitioner; Visit Provider Student in an Organized Health Care Education/Training Program
PROC: (CPT 64718; principal; 2023-10-14 13:45)
DX: G56.22 Lesion of ulnar nerve, left upper limb (principal); N18.9 Chronic kidney disease, unspecified; E03.9 Hypothyroidism, unspecified; Z87.891 Personal history of nicotine dependence; G47.30 Sleep apnea, unspecified; K21.9 Gastro-esophageal reflux disease without esophagitis; E66.01 Morbid (severe) obesity due to excess calories; Z68.38 Body mass index [BMI] 38.0-38.9, adult
CPT/HCPCS: 64718; J0131; J0330; J0690; J1100; J1885; J2250; J2405; J2704; J2795; J3010; J7030

== ENCOUNTER 2023-11-27 12:32 | Emergency (ER) | payer OTHER, SELFPAY ==
[2023-11-27 12:40] VITALS: BP 120/76; PULSE 66; RESP 15; TEMP 36.6; O2SAT 99
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
--- NOTE | 2023-11-27 13:07 | XRR_ITS ---
PROCEDURE INFORMATION: Exam: XR Right Hand Exam date and time: 11/27/2023 1:32 PM Age: 48 years old Clinical indication: Injury or trauma; Other: Dog bite; Hand; Right TECHNIQUE: Imaging protocol: Radiologic exam of the right hand. Views: 3 or more views. COMPARISON: No relevant prior studies available. FINDINGS: Bones/joints: No evidence of fracture or subluxation. Radiocarpal articulation and carpal rows are grossly intact. No evidence of osseous erosion to suggest osteomyelitis. Soft tissues: Soft tissue edema/laceration of the long finger. No evidence of radiopaque foreign body. XR/XR hand RT min 3V* [id number] IMPRESSION: 1. No evidence of radiopaque foreign body, fracture or subluxation.
== END 2023-11-27 14:33 | disposition home or self-care (01) ==
PROVIDERS: Emergency Provider Family Medicine; PCP Nurse Practitioner
DX: S61.252A Open bite of right middle finger without damage to nail, initial encounter (principal); W54.0XXA Bitten by dog, initial encounter; Z87.891 Personal history of nicotine dependence; N18.2 Chronic kidney disease, stage 2 (mild)
CPT/HCPCS: 73130; 99283

== ENCOUNTER → 2023-12-07 12:00 | Outpatient (BNVA) | payer OTHER, SELFPAY | PROVIDERS: PCP Nurse Practitioner; Visit Provider Nurse Practitioner | DX: E03.9 Hypothyroidism, unspecified (principal) | CPT/HCPCS: 80053; 84443 ==

== ENCOUNTER → 2023-12-14 14:13 | Outpatient (BNVA) | payer OTHER, SELFPAY | PROVIDERS: PCP Nurse Practitioner; Visit Provider Nurse Practitioner | DX: E03.8 Other specified hypothyroidism (principal) | CPT/HCPCS: 84439; 84481 ==

== ENCOUNTER → 2024-01-06 10:14 | Outpatient (BNVA) | payer OTHER, SELFPAY | PROVIDERS: PCP Nurse Practitioner; Visit Provider Nurse Practitioner Family | DX: R53.83 Other fatigue (principal) | CPT/HCPCS: 82306; 82607; 86003; 86008; 86618; 86666; 86757 ==

== ENCOUNTER → 2024-02-08 13:44 | Outpatient (BNVA) | payer OTHER, SELFPAY | PROVIDERS: PCP Nurse Practitioner; Visit Provider Nurse Practitioner | DX: E03.8 Other specified hypothyroidism (principal); N18.2 Chronic kidney disease, stage 2 (mild) | CPT/HCPCS: 80053; 81000; 84443 ==

== ENCOUNTER → 2024-04-11 11:44 | Outpatient (BNVA) | payer OTHER, SELFPAY | PROVIDERS: PCP Nurse Practitioner; Visit Provider Nurse Practitioner | DX: E03.8 Other specified hypothyroidism (principal) | CPT/HCPCS: 82306; 84443 ==

== ENCOUNTER 2024-04-16 13:38 | Emergency (ER) | payer OTHER, SELFPAY ==
[2024-04-16 13:53] VITALS: BP 132/80; PULSE 76; RESP 17; TEMP 36.6; O2SAT 97; BMI 38.0
[2024-04-16 13:56] LABS: Basophils # 0.1 10^3/uL (0.0-0.1); Basophils % 0.8 %; Eosinophils # 0.2 10^3/uL (0.0-0.8); Eosinophils % 3.4 %; Hematocrit 48.9 % (36-47); Lymphocytes % 32.6 %; Mean Corpuscular HGB Conc 32.5 g/dL (30-55); Mean Corpuscular Hemoglobin 29.3 pg (27-33); Mean Corpuscular Volume 90.2 fl (85-98); Mean Platelet Volume 9.6 fL (7.4-10.4); Monocytes % 15.2 %; Neutrophils # 2.95 10^3/uL (1.8-7.7); Neutrophils % 47.4 %; Nucleated Red Blood Cells % 0 %; Platelet Count 320 10^3/cmm (157-399); Red Blood Count 5.42 10^6/uL (3.85-5.65); Red Cell Distribution Width 12.9 % (12.1-15.1); White Blood Count 6.23 10^3/uL (3.29-11.43)
[2024-04-16 14:20] LABS: Alanine Aminotransferase 38 U/L (0-33); Albumin Level 4.7 g/dL (3.5-5.2); Alkaline Phosphatase 59 U/L (35-105); Anion Gap 20.4 (5-19); Aspartate Amino Transferase 28 U/L (0-32); Blood Urea Nitrogen 15 mg/dL (6-20); Calcium 9.8 mg/dL (8.5-10.5); Carbon Dioxide 24 mmol/L (22-29); Chloride 94 mmol/L (98-107); Globulin 3.5 g/dL (1.3-4.6); Glomerular Filtration Rate 53.5 mL/min (90-130); Glucose 85 mg/dL (65-115); Magnesium 2.3 mg/dL (1.7-2.3); Osmolality Calculated 278 mOsm/kg (285-295); Potassium 4.4 mmol/L (3.5-5.1); Sodium 134 mmol/L (136-145); Total Bilirubin 0.5 mg/dL (0.15-1.2); Total Protein 8.2 g/dL (6.6-8.7)
[2024-04-16 14:21] LABS: Creatinine Clr Calc Pharmacy 81.7655
--- NOTE | 2024-04-16 14:29 | CTR_ITS ---
PROCEDURE INFORMATION: Exam: CT Abdomen And Pelvis With Contrast Exam date and time: 04/16/2024 3:34 PM Age: 48 years old Clinical indication: Nausea and vomiting; Abdominal pain; Generalized; Prior surgery; Surgery date: 6+ months; Hysto; TECHNIQUE: Imaging protocol: Computed tomography of the abdomen and pelvis with contrast. Radiation optimization: All CT scans at this facility use at least one of these dose optimization techniques: automated exposure control; mA and/or kV adjustment per patient size (includes targeted exams where dose is matched to clinical indication); or iterative reconstruction. Contrast material: OMNI 350; Contrast volume: 100 ml; Contrast route: INTRAVENOUS (IV); COMPARISON: CT abdomen pelvis w con* [id number] 05/14/2021 7:06 PM RADIATION DOSE METRICS: Total DLP (mGy-cm): 1074.2 FINDINGS: Liver: There is a diffuse decrease in hepatic parenchymal density, consistent with fatty infiltration. Hepatomegaly. Gallbladder and bile ducts: The gallbladder has been removed. Pancreas: Normal. No ductal dilation. Spleen: Normal. No splenomegaly. Adrenal glands: Normal. No mass. Kidneys and ureters: Normal. No hydronephrosis. Stomach and bowel: Unremarkable. No obstruction. No mucosal thickening. Appendix: A normal appendix is identified. Intraperitoneal space: Unremarkable. No free air. No significant fluid collection. Vasculature: Unremarkable. No abdominal aortic aneurysm. Lymph nodes: Unremarkable. No enlarged lymph nodes. Urinary bladder: Unremarkable as visualized. Reproductive: Unremarkable as visualized. Bones/joints: There are degenerative changes in the visualized spine. Degenerative changes extend across the hip joints. Soft tissues: Unremarkable. CT/CT abdomen pelvis w con* [id number] IMPRESSION: Hepatomegaly with fatty infiltration of the liver.
--- NOTE | 2024-04-16 14:29 | ED_ITS ---
HPI - Nausea/Vomiting/Diarrhea 2 General: Chief complaint: Nausea/Vomiting/Diarrhea Stated complaint: n/v, having trouble keeping fluids and food down Time Seen by Provider: 04/16/24 14:29 History of Present Illness: 48-year-old female comes in today for na usea and vomiting for last 3 days. Patient appears nontoxic. Patient appears in no pain. Patient does endorse some abdominal discomfort. Patient denies any diarrhea. Associated nausea: Yes Associated symtoms: Reports nausea Review of Systems 2 General: Reports: 10 or more systems reviewed and unremarkable except in HPI and below GI: Reports: nausea and vomiting [facility] ED 2 PFSH: Medical History CKD (chronic kidney disease) stage 2, GFR 60-89 ml/min Seasonal and perennial allergic rhinitis Metabolic syndrome Hypertriglyceridemia Obesity, Class II, BMI 35-39.9 No pertinent past medical history neghx: htn,dm,dvt/pe PCP: Shai aguirre IBS (irritable bowel syndrome) Colitis Esophagitis determined by endoscopy Morbid obesity Sleep apnea Hypothyroidism Surgical History Hx of sinus surgery History of nasal septoplasty History of hysterectomy (~06/29/18) Diagnostic laparoscopy with total abdominal hysterectomy performed by Dr. Mendoza for pelvic pain and abnormal uterine bleeding. Multiple omental and bladder adhesions noted. 1. Cervix: Benign cervical mucosa. 2. Cul-de-sac peritoneum: No significant histopathologic alteration. 3. Lower uterine segment/endocervical canal: Mucosal attenuation. 4. Endometrium: Proliferative endometrium. 5. Myometrium: Small leiomyoma. Superficial adenomyosis. 6. Right adnexa: Normal fallopian tube. 7. Left adnexa: Normal fallopian tube Hx of dilation and curettage (~04/07/17) 04/07/2017, Performed per Dr. Mendoza due to incomplete H/O rhinoplasty (~2002) Hx of thyroidectomy (~05/16/18) Performed in [place] due to cancer History of 1)-2000 2)-2005 History of cholecystectomy Family History Father Diabetes Heart disease Hypercholesteremia Hypertension Grandfather Heart disease Maternal and Paternal Hypercholesteremia Maternal and Paternal Hypertension Maternal and Paternal Mother Thyroid disease Heart disease Hypercholesteremia Hypertension Grandmother Hypercholesteremia Maternal and Paternal Hypertension Paternal Brother Hypertension Denies family history of Colon cancer Ovarian cancer Breast cancer Uterine cancer Stroke Social History Smoking and tobacco/nicotine status: former use of tobacco/nicotine Second hand smoke exposure: No Alcohol intake: unknown Substance/Drug Use: unknown Adopted: No Caregiver/support person: No Lives independently: Yes Household members: spouse and children Housing: House Marital status: Number of children: 2 service: No Current occupational status: employed Pets and animals: Yes Pets & animals: dog(s) Do you think of yourself as: Straight/Heterosexual Current gender identity: Female Physical Exam 2 Const: COMMON NORMALS: alert HENMT: COMMON NORMALS: normocephalic HEAD & SCALP: normocephalic Neck/C-Spine: COMMON NORMALS: full ROM Resp: COMMON NORMALS: normal respiratory effort and clear to auscultation bilaterally AUSCULTATION: clear to auscultation bilaterally Cardio: COMMON NORMALS: regular rate and regular rhythm RATE: regular rate RHYTHM: regular rhythm GI: COMMON NORMALS: Soft to palpation INSPECTION: Yes normal to inspection AUSCULTATION: Yes normoactive bowel sounds PALPATION: Yes Soft to palpation and Yes Tenderness to palpation present (GI) : COMMON NORMALS: Yes no CVA tenderness BLADDER/KIDNEY EXAM: Yes no CVA tenderness Back/Pelvis: COMMON NORMALS: no CVA tenderness Extremity: COMMON NORMALS: no pedal edema Neuro: SENSORIUM/ORIENTATION: Yes alert Skin: COMMON NORMALS: turgor normal GENERAL SKIN EXAM: turgor normal Course 2 Vital Signs: Vital signs: Vital Signs Temperature 97.9 F 04/16/24 13:53 Pulse Rate 70 04/16/24 15:22 Respiratory Rate 16 04/16/24 15:22 Blood Pressure 144/100 04/16/24 15:22 Pulse Oximetry 92 04/16/24 15:22 Oxygen Delivery Me thod Room Air 04/16/24 15:22 MDM - Nausea/Vomiting/Diarrhea Medical Decision Making 48-year-old female comes in today with generalized abdominal pain along with nausea and vomiting. Patient appears nontoxic. Respirations are even lungs are clear to auscultation. Abdomen soft with some generalized tenderness. Vital signs are normal. Differential diagnosis includes but not limited to cyclic vomiting syndrome and cannabis user, gastroenteritis, esophagitis, GERD, pancreatitis, bowel obstruction, dehydration. CBC noted a white count of 6000, hemoglobin is 15.9, CMP noted a sodium of 134, creatinine 1.1. CT of the abdomen pelvis noted a fatty infiltration of the liver. Urinalysis was unremarkable. Believe patient most likely has some dehydration secondary to nausea and vomiting secondary to a viral syndrome. Patient was given 1 L of IV fluids was able to tolerate oral fluids. Patient be continued on Zofran to help with nausea and vomiting and encouraged to drink plenty water and fluids. Patient reports understanding and need for follow-up or return for worsening symptoms. Lab Data 04/16/24 13:52 04/16/24 13:52 Radiology Impressions Abdomen/Pelvis CT 04/16/24 14:29 IMPRESSION: Hepatomegaly with fatty infiltration of the liver. Laboratory Results WBC 6.23 10^3/uL (3.29-11.43) 04/16/24 13:52 RBC 5.42 10^6/uL (3.85-5.65) 04/16/24 13:52 Hgb 15.90 g/dL (11.27-16.99) 04/16/24 13:52 Hct 48.9 % (36-47) H 04/16/24 13:52 MCV 90.2 fl (85-98) 04/16/24 13:52 MCH 29.3 pg (27-33) 04/16/24 13:52 MCHC 32.5 g/dL (30-55) 04/16/24 13:52 RDW 12.9 % (12.1-15.1) 04/16/24 13:52 Plt Count 320 10^3/cmm (157-399) 04/16/24 13:52 MPV 9.6 fL (7.4-10.4) 04/16/24 13:52 Neut % (Auto) 47.4 % 04/16/24 13:52 Lymph % (Auto) 32.6 % 04/16/24 13:52 [place] % (Auto) 15.2 % 04/16/24 13:52 Eos % (Auto) 3.4 % 04/16/24 13:52 Baso % (Auto) 0.8 % 04/16/24 13:52 Neut # (Auto) 2.95 10^3/uL (1.8-7.7) 04/16/24 13:52 Lymph # (Auto) 2.0 10^3/uL (0.8-4.8) 04/16/24 13:52 [place] # (Auto) 1.0 10^3/uL (0.2-0.9) H 04/16/24 13:52 Eos # (Auto) 0.2 10^3/uL (0.0-0.8) 04/16/24 13:52 Baso # (Auto) 0.1 10^3/uL (0.0-0.1) 04/16/24 13:52 Nucleated RBC % (auto) 0 % 04/16/24 13:52 Nucleated RBCs # 0.0 /100WBC 04/16/24 13:52 Sodium 134 mmol/L (136-145) L 04/16/24 13:52 Potassium 4.4 mmol/L (3.5-5.1) 04/16/24 13:52 Chloride 94 mmol/L (98-107) L 04/16/24 13:52 Carbon Dioxide 24 mmol/L (22-29) 04/16/24 13:52 Anion Gap 20.4 (5-19) H 04/16/24 13:52 BUN 15 mg/dL (6-20) 04/16/24 13:52 Creatinine 1.1 mg/dL (0.5-0.9) H 04/16/24 13:52 GFR Calculation 53.5 mL/min (90-130) L 04/16/24 13:52 Glucose 85 mg/dL (65-115) 04/16/24 13:52 Calculated Osmolality 278 mOsm/kg (285-295) L 04/16/24 13:52 Calcium 9.8 mg/dL (8.5-10.5) 04/16/24 13:52 Magnesium 2.3 mg/dL (1.7-2.3) 04/16/24 13:52 Total Bilirubin 0.5 mg/dL (0.15-1.2) 04/16/24 13:52 AST 28 U/L (0-32) 04/16/24 13:52 ALT 38 U/L (0-33) H 04/16/24 13:52 Alkaline Phosphatase 59 U/L (35-105) 04/16/24 13:52 Total Protein 8.2 g/dL (6.6-8.7) 04/16/24 13:52 Albumin 4.7 g/dL (3.5-5.2) 04/16/24 13:52 Globulin 3.5 g/dL (1.3-4.6) 04/16/24 13:52 Urine Color Yellow (Yellow) 04/16/24 15:32 Urine Appearance Clear (CLEAR) 04/16/24 15:32 Urine pH 5 (5-7) 04/16/24 15:32 Ur Specific [place] 1.030 (1.005-1.030) 04/16/24 15:32 Urine Protein Neg (Negative) 04/16/24 15:32 Urine Glucose (UA) 4+ (Normal) H 04/16/24 15:32 Urine Ketones 2+ (Negative) H 04/16/24 15:32 Urine Blood Neg (Negative) 04/16/24 15:32 Urine Nitrate Negative (Negative) 04/16/24 15:32 Urine Bilirubin 1+ (Negative) H 04/16/24 15:32 Urine Urobilinogen 1 mg/dL (Negative) H 04/16/24 15:32 Ur Leukocyte Esterase Negative (Negative) 04/16/24 15:32 All radiology interpretation(s) finalized by discharge Discharge Plan Discharge Patient Disposition: Home Clinical Impression: Acute dehydration, Viral syndrome Nausea & vomiting Qualifiers: Vomiting type: unspecified Qualified Code(s): R11.2 - Nausea with vomiting, unspecified Condition: Stable Prescriptions: New ondansetron 4 mg tablet,disintegrating 4 mg PO Q8H PRN (Reason: nausea and vomiting) Qty: 10 0RF No Action bupropion HCl 150 mg tablet sustained-release 12 hr 150 mg PO Q12H Qty: 60 2RF Rx Instructions: mood and weight cholecalciferol (vitamin D3) 1,250 mcg (50,000 unit) capsule 50,000 unit PO .weekly Qty: 4 2RF dapagliflozin propanediol [Farxiga] 10 mg tablet 10 mg PO QAM Qty: 30 2RF famotidine [Pepcid] 40 mg tablet 40 mg PO BID Qty: 60 2RF Rx Instructions: stomach fenofibrate 160 mg tablet 160 mg PO DAILY Qty: 30 2RF Rx Instructions: cholesterol levocetirizine [Xyzal] 5 mg tablet 5 mg PO DAILY Qty: 30 2RF Rx Instructions: allergies naltrexone 50 mg tablet 50 mg PO DAILY Qty: 30 2RF Rx Instructions: Behavior and weight sucralfate [Carafate] 1 gram tablet 1 g PO BID Qty: 60 2RF Rx Instructions: for stomach levothyroxine 137 mcg tablet See Rx Instructions PO DAILY Qty: 34 2RF Rx Instructions: 205.5mcg 1.5 tab 1 day 137 mcg 1 tab 6 days orally daily; thyroid estradiol 0.05 mg/24 hr patch weekly See Rx Instructions .ROUTE .COMPLEX Qty: 12 3RF Dose Instruction: APPLY ONE PATCH TOPICALLY WEEKLY Rx Instructions: APPLY ONE PATCH TOPICALLY WEEKLY epinephrine [EpiPen 2-Loagn] 0.3 mg/0.3 mL auto-injector 0.3 mg IM Q20M PRN (Reason: anaphylaxis) Qty: 2 0RF Rx Instructions: for 2 doses Discharge Orders: Discharge ED (Routine); Ordered 04/16/24 Ordered By: Jae Melvin Referrals: Sera Springer, SENIOR MANAGEMENT CONSULTANT-C [Primary Care Provider] - Discharge Diet: Usual diet Discharge Activity: Increase activity as tolerated Patient Instructions: Viral Syndrome (ED) Activity Restrictions/Additional Instructions: Drink plenty of water and fluids. Use ondansetron as needed for nausea or vomiting. Follow-up with primary care in 2 to 3 days for recheck. Return to ED for worsening symptoms. Coding Level of Care Code ED Mechanist for Chad Muniz
[2024-04-16] MEDS: ondansetron 2 mg/ML SDV 2 mL 4 MG IVP (15:21)
[2024-04-16] MEDS: sodium chloride 0.9% 1,000 ML 30 ML IV (15:21)
[2024-04-16 15:22] VITALS: BP 144/100; PULSE 70; RESP 16; O2SAT 92
[2024-04-16] MEDS: iohexol 350 mg/mL 500 mL Btl (per mL) IV (15:40)
[2024-04-16 15:41] LABS: Add Urine Microscopic? NO; Charge for UA Resulting for Rev
[2024-04-16 15:45] LABS: Bilirubin Urine 1+ (Negative); Blood Urine Neg (Negative); Glucose Urine UA 4+ (Normal); Ketones Urine 2+ (Negative); Leukocyte Esterase Urine Negative (Negative); Nitrate Urine Negative (Negative); Protein Urine Neg (Negative); Urine Appearance Clear (CLEAR); Urine Color Yellow (Yellow); Urobilinogen Urine 1 mg/dL (Negative); pH Urine 5 (5-7)
[2024-04-16 16:59] VITALS: BP 144/100; PULSE 70; RESP 16; TEMP 36.6; O2SAT 92
== END 2024-04-16 17:00 | disposition home or self-care (01) ==
PROVIDERS: Emergency Medicine; Emergency Provider Nurse Practitioner Family; PCP Nurse Practitioner
DX: B34.9 Viral infection, unspecified (principal); R11.2 Nausea with vomiting, unspecified; E86.0 Dehydration; Z87.891 Personal history of nicotine dependence; N18.2 Chronic kidney disease, stage 2 (mild)
CPT/HCPCS: 36415; 74177; 80053; 81003; 83735; 85025; 96374; 99285; J2405; J7030; Q9967

== ENCOUNTER → 2024-08-03 08:43 | Outpatient (BNVA) | payer OTHER, SELFPAY | PROVIDERS: PCP Nurse Practitioner; Visit Provider Nurse Practitioner | DX: N18.2 Chronic kidney disease, stage 2 (mild) (principal); E55.9 Vitamin D deficiency, unspecified | CPT/HCPCS: 80053; 80061; 81000; 84443 ==

== ENCOUNTER 2024-08-15 11:55 | Outpatient (CLI) | payer OTHER, SELFPAY ==
--- NOTE | 2024-08-15 12:00 | MM_ITS ---
WS: [id number] BILATERAL 3D TOMOSYNTHESIS DIGITAL SCREENING MAMMOGRAPHY WITH CAD CLINICAL INFORMATION: Z12.31 - Encounter for screening mammogram for malignant ... HISTORY: Screening mammogram. No current complaints. COMPARISON: 2022 TECHNIQUE: Bilateral CC and MLO views. FINDINGS: Scattered fibroglandular densities bilaterally. No suspicious focal mass, asymmetry, calcifications, or architectural distortion. No evidence of malignancy. A few tiny punctate calcifications. MM/MM [facility] tomosynthesis [id number] IMPRESSION: DENSITY: There are scattered areas of fibroglandular density. BI-RADS: 2 - Benign. FOLLOW UP: 1 Year Follow-up Recommend return to annual screening mammography.
== END 2024-08-15 11:56 | disposition home or self-care (01) ==
LOC: MOBLMAM 12:15
PROVIDERS: PCP Nurse Practitioner; Visit Provider Nurse Practitioner
DX: Z12.31 Encounter for screening mammogram for malignant neoplasm of breast (principal); R92.323 Mammographic fibroglandular density, bilateral breasts
CPT/HCPCS: 77063; 77067

== ENCOUNTER → 2024-10-19 10:10 | Outpatient (BNVA) | payer OTHER, SELFPAY | PROVIDERS: PCP Nurse Practitioner; Visit Provider Nurse Practitioner | DX: N18.2 Chronic kidney disease, stage 2 (mild) (principal); E03.8 Other specified hypothyroidism; E55.9 Vitamin D deficiency, unspecified; E78.1 Pure hyperglyceridemia; R55 Syncope and collapse | CPT/HCPCS: 80053; 80061; 81000; 82306; 84439; 84443; 84481 ==

== ENCOUNTER 2024-11-06 13:09 | Outpatient (CLI) | payer OTHER, SELFPAY ==
--- NOTE | 2024-11-06 13:00 | CT_ITS ---
WS: [id number] CT HEAD NONCONTRAST HISTORY: R55 - Syncope and collapse TECHNIQUE: Contiguous axial imaging performed through the brain. Bone and soft tissue windows. Sagitt al and coronal reformats reviewed. All CT scans at [facility] use at least one of these dose optimization techniques: automated exposure control; mA and/or kV adjustment per patient size (includ es targeted exams where dose is matched to clinical indication); or iterative reconstruction. DLP: 1046.03 mGy.cm COMPARISON: None available. No acute intracranial hemorrhage, midline shift or mass effect. No atrophy or prior infarcts or herniation. Prominent perivascular space along the LEFT inferior basa l ganglia. Ventricles: Normal size with no hydrocephalus. No inferior displacement of the cerebellar tonsils. Paranasal sinuses: As visualized are clear. Mastoid air cells: Well pneumatized. Calvarium and scalp: Skull is intact with no soft tissue edema or swelling. CT/CT head wo con* [id number] IMPRESSION: Negative head CT.
== END 2024-11-06 13:10 | disposition home or self-care (01) ==
LOC: RAD 13:10
PROVIDERS: PCP Nurse Practitioner; Visit Provider Nurse Practitioner
DX: R55 Syncope and collapse (principal)
CPT/HCPCS: 70450

== ENCOUNTER → 2025-01-02 12:44 | Outpatient (BNVA) | payer OTHER, SELFPAY | PROVIDERS: PCP Nurse Practitioner; Referring Provider Nurse Practitioner; Visit Provider Internal Medicine Cardiovascular Disease | DX: R07.9 Chest pain, unspecified (principal) | CPT/HCPCS: 93005 ==

== ENCOUNTER → 2025-02-27 13:29 | Outpatient (BNVA) | payer OTHER, SELFPAY | PROVIDERS: PCP Nurse Practitioner; Visit Provider Nurse Practitioner | DX: E03.8 Other specified hypothyroidism (principal); E55.9 Vitamin D deficiency, unspecified; E78.1 Pure hyperglyceridemia | CPT/HCPCS: 80053; 80061; 82306; 84439; 84443; 84481 ==

== ENCOUNTER 2025-06-20 07:22 | Outpatient (CLI) | payer OTHER, SELFPAY ==
--- NOTE | 2025-06-20 07:45 | USCV_ITS ---
Nathaly Howard Age: 50 Gender: F : 1975 Exam Date: 06/20/2025 07:43 Ordering Phys: Elpidio Montoya MD ([email or web address]) Technologist: Exam Location: [facility] [place] Indication: cp syncope BP: 120 / 79 HR: 56 Rhythm: Sinus Technical Quality: MEASUREMENTS (Male / Female) Normal Values 2D ECHO LV Diastolic Diameter PLAX 4.3 cm 4.2 - 5.9 / 3.9 - 5.3 cm IVS Diastolic Thickness 1.3 cm 0.6 - 1.0 / 0.6 - 0.9 cm IVS Systolic Thickness 1.9 cm LVPW Diastolic Thickness 0.9 cm 0.6 - 1.0 / 0.6 - 0.9 cm LVPW Systolic Thickness 2.0 cm LVOT Diameter 2.2 cm LV Ejection Fraction 2D Teich 67.2 % LV Ejection Fraction MOD 4C 70.8 % LV Ejection Fraction MOD 2C 68.2 % LV Ejection Fraction 2C AL 67.6 % LA Diameter 4.2 cm RA Systolic Volume 4C AL 31.4 ml RA Systolic Volume 4C MOD 29.1 ml Aorta at Sinotubular Diameter 2.6 cm M-MODE LA Ao Ratio MM 1.1 AV Cusp Separation MM 2.5 cm DOPPLER AV Peak Velocity 101.0 cm/s LVOT Peak Velocity 70.0 cm/s AV Area Cont Eq vti 2.7 cm squared AV Area Cont Eq pk 2.7 cm squared MV Peak Velocity 75.0 cm/s MV Area PHT 3.5 cm squared Mitral E to A Ratio 1.1 TV Peak Velocity 138.0 cm/s TR Peak Velocity 156.0 cm/s TR Peak Gradient 9.7 mmHg TV Peak E Velocity 69.0 cm/s PV Peak Velocity 111.0 cm/s FINDINGS Left Ventricle Technically limited quality echocardiogram because of poor ultrasonic windows. LV systolic function is normal with no regional wall motion abnormalities. Normal left ventricular size and systolic function, EF 60-65%. Right Ventricle Normal right ventricular size and systolic function. Right Atrium Normal right atrial size. Left Atrium Normal left atrial size. Mitral Valve Structurally normal mitral valve. Mild mitral regurgitation Aortic Valve Grossly normal. No significant stenosis or regurgitation. Tricuspid Valve Insufficient TR jet to calculate RVSP Pulmonic Valve Not well visualized Pericardium Normal Aorta Normal in size IVC Not well visualized CONCLUSIONS LV systolic function is normal with EF of 60-65% Mild mitral regurgitation No comparison studies are available. Aiden Johnson MD (Electronically Signed) Final Date: 24 June 2025 15:20 S
== END 2025-06-20 07:23 | disposition home or self-care (01) ==
LOC: RAD 07:23
PROVIDERS: PCP Nurse Practitioner; Visit Provider Internal Medicine Cardiovascular Disease
DX: R55 Syncope and collapse (principal); R06.02 Shortness of breath; I34.0 Nonrheumatic mitral (valve) insufficiency
CPT/HCPCS: 93306

== ENCOUNTER → 2025-07-25 15:52 | Outpatient (BNVA) | payer OTHER, SELFPAY | PROVIDERS: PCP Nurse Practitioner; Visit Provider Nurse Practitioner | DX: N18.2 Chronic kidney disease, stage 2 (mild) (principal); J30.89 Other allergic rhinitis; J30.2 Other seasonal allergic rhinitis; E03.8 Other specified hypothyroidism; E55.9 Vitamin D deficiency, unspecified | CPT/HCPCS: 80053; 82607; 84439; 84443; 84481 ==

== ENCOUNTER 2025-10-16 15:00 | Outpatient (CLI) | payer OTHER, SELFPAY | END 2025-10-16 15:01 | disposition home or self-care (01) | LOC: LAB 10-18 08:57 | PROVIDERS: PCP Nurse Practitioner; Visit Provider Nurse Practitioner | DX: E78.1 Pure hyperglyceridemia (principal); E03.8 Other specified hypothyroidism; E55.9 Vitamin D deficiency, unspecified; N95.1 Menopausal and female climacteric states | CPT/HCPCS: 80053; 80061; 82306; 82672; 84439; 84443; 84481; 86635 ==

== ENCOUNTER 2025-10-22 15:28 | Outpatient (CLI) | payer OTHER, SELFPAY ==
--- NOTE | 2025-10-22 16:00 | US_ITS ---
WS: [id number] THYROID ULTRASOUND HISTORY: E03.8 - Other specified hypothyroidism COMPARISON: None available. Status post complete thyroidectomy as per history. No residual thyroid tissue noted in this thyroid beds. There are a few small benign-appearing lymph nodes. US/US thyroid [id number] IMPRESSION: Status post complete thyroidectomy. No recurrent thyroid tissue.
== END 2025-10-22 15:29 | disposition home or self-care (01) ==
PROVIDERS: PCP Nurse Practitioner; Visit Provider Nurse Practitioner
DX: E03.8 Other specified hypothyroidism (principal)
CPT/HCPCS: 76536